=== PATIENT | female | born 1960 | race Caucasian/White ===

== ENCOUNTER 2020-12-15 09:24 | Day surgery (SDC) | payer OTHER ==
[2020-11-25 13:38] VITALS: BMI 25.9
--- NOTE | 2020-12-15 08:39 | P.GSHP ---
History of Present Illness H&P Date: 12/15/20 CHIEF COMPLAINT: Colon screen HISTORY OF PRESENT ILLNESS: The patient is a 60-year-old female who presents for colon screen. Lower endoscopy was offered for further evaluation and management. PAST MEDICAL HISTORY: Please see list. PAST SURGICAL HISTORY: Please see list. MEDICATIONS: Please see list. ALLERGIES: Please see list. SOCIAL HISTORY: No illicit drug use FAMILY HISTORY: No reports of Crohn disease or ulcerative colitis. REVIEW OF ORGAN SYSTEMS: CONSTITUTIONAL: No reports of fevers or chills. PHYSICAL EXAM: VITAL SIGNS: Stable GENERAL: Well-developed pleasant in no acute distress. HEENT: No scleral icterus. Extraocular movements grossly intact. Moist buccal mucosa. NECK: Supple without lymphadenopathy. CHEST: Unlabored respirations. Equal bilateral excursions. CARDIOVASCULAR: Regular rate and rhythm. Distal 2+ pulses. ABDOMEN: Soft, nontender, nondistended. MUSCULOSKELETAL: No clubbing, cyanosis, or edema. ASSESSMENT: 1. Colon screen. PLAN: 1. Recommend proceeding with a lower endoscopy Past Medical History Past Medical History: Hyperlipidemia Additional Past Medical History / Comment(s): received J&J covid vaccine History of Any Multi-Drug Resistant Organisms: None Reported Past Surgical History: Back Surgery, Hysterectomy, Tonsillectomy Additional Past Surgical History / Comment(s): back surgery x3,has spinal cord stimulator-battery rt hip lead to mid back,partial hyst Past Anesthesia/Blood Transfusion Reactions: No Reported Reaction Smoking Status: Former smoker - Past Family History Mother Family Medical History: Cancer Additional Family Medical History / Comment(s): brain CA Father Family Medical History: Cancer Additional Family Medical History / Comment(s): lung CA Medications and Allergies Home Medications Medication Instructions Recorded Confirmed Type Aspirin 81 mg PO DAILY 11/25/20 12/13/20 History Calcium Carbonate [Calcium] 600 mg PO DAILY 11/25/20 12/13/20 History Gabapentin 600 mg PO TID 11/25/20 12/13/20 History [place]-3 Fatty Acids/Fish Oil [Fish 1 each PO DAILY 11/25/20 12/13/20 History Oil 1,000 mg Softgel] Pravastatin Sodium [Pravachol] 20 mg PO DAILY 11/25/20 12/13/20 History Vitamin B Complex 1 each PO DAILY 12/13/20 12/13/20 History Allergies Allergy/AdvReac Type Severity Reaction Status Date / Time No Known Allergies Allergy Verified 12/13/20 14:38
[~2020-12-15 09:24] MED LIST: LACTATED RINGERS 1,000 ML IV SCH
[2020-12-15] MEDS ORDERED: LIDOCAINE 1% (10MG/ML) FOR IV START INTRADERMA ONE (10:02)
[2020-12-15 10:03] VITALS: TEMP 97
[2020-12-15] MEDS ORDERED: PROPOFOL 10 MG/ML 20 ML VIAL IV ONE (10:32)
--- NOTE | 2020-12-15 11:01 | P.PCN ---
Date of Procedure: 12/15/20 Description of Procedure: PREOPERATIVE DIAGNOSIS: Colonoscopy screening. Personal history colon polyps POSTOPERATIVE DIAGNOSIS: Colonoscopy screening. Diverticulosis, scattered. OPERATION: Colonoscopy to the cecum, ileocecal valve and appendiceal orifice. SURGEON: Ruth Villar MD. ANESTHESIA: MAC. INDICATIONS: The patient is a 60-year-old female who presents for colonoscopy screening. Last colonoscopy over 3 years ago Benefits and risks were described and informed consent was obtained. DESCRIPTION OF PROCEDURE: The patient had undergone Sutab prep. The patient had been brought into the operating room and laid in the left lateral decubitus position. After adequate intravenous sedation, the rectum was examined with 2% lidocaine jelly. No external hemorrhoids were encountered. The rectal tone was within normal limits. No lesions were palpated in the rectal vault. An Olympus colonoscope was advanced until the cecum, ileocecal valve and appendiceal orifice were clearly viewed. The prep was excellent. Scattered diverticulosis was encountered. No colonic polyps were found. Mild colitis was found at sigmoid diverticulosis. Retroflexion of the scope demonstrated grade 1 internal hemorrhoids without active bleeding or inflammation. The colon was desufflated. The patient had tolerated the procedure well. Withdrawal time was over 6 minutes. FINDINGS: Aronchick preparation quality scale 1 (1-5) Internal hemorrhoids, grade 1 No external prolapsed hemorrhoids. No arteriovenous malformations. No adenomatous polyps. Mild colitis was found at sigmoid diverticulosis. Scattered diverticulosis RECOMMENDATIONS: Lower endoscopy in 5 years, 2025 Plan - Discharge Summary Discharge Rx Participant: No New Discharge Prescriptions: Continue Pravastatin Sodium [Pravachol] 20 mg PO DAILY Aspirin 81 mg PO DAILY Vitamin B Complex 1 each PO DAILY Gabapentin 600 mg PO TID [place]-3 Fatty Acids/Fish Oil [Fish Oil 1,000 mg Softgel] 1 each PO DAILY Calcium Carbonate [Calcium] 600 mg PO DAILY Discharge Medication List Aspirin 81 mg PO DAILY 11/25/20 [History] Calcium Carbonate [Calcium] 600 mg PO DAILY 11/25/20 [History] Gabapentin 600 mg PO TID 11/25/20 [History] [place]-3 Fatty Acids/Fish Oil [Fish Oil 1,000 mg Softgel] 1 each PO DAILY 11/25/20 [History] Pravastatin Sodium [Pravachol] 20 mg PO DAILY 11/25/20 [History] Vitamin B Complex 1 each PO DAILY 12/13/20 [History] Follow up Appointment(s)/Referral(s): Ruth Villar MD [STAFF PHYSICIAN] - As Needed Patient Instructions/Handouts: *Surgery [facility] - (Anesthesia) Endoscopy Discharge Instructions, Colonoscopy (DC), Diverticulosis Diet (GEN), Diverticulosis (DC) Activity/Diet/Wound Care/Special Instructions: Colonoscopy in 5 years, 2025 Discharge Disposition: HOME SELF-CARE
[2020-12-15 11:16] VITALS: BP 131/79; PULSE 72; RESP 16
== END 2020-12-15 11:35 | disposition home or self-care (01) ==
LOC: ORWHC2ENDO 09:24
PROVIDERS: ATTEND Surgery Plastic and Reconstructive Surgery
DX: Z12.11 Encounter for screening for malignant neoplasm of colon (principal); K57.90 Diverticulosis of intestine, part unspecified, without perforation or abscess without bleeding; K52.9 Noninfective gastroenteritis and colitis, unspecified; K64.0 First degree hemorrhoids; Z86.010 Personal history of colon polyps; E78.5 Hyperlipidemia, unspecified; Z90.710 Acquired absence of both cervix and uterus; Z98.890 Other specified postprocedural states; Z90.89 Acquired absence of other organs; Z96.82 Presence of neurostimulator; Z87.891 Personal history of nicotine dependence; Z80.1 Family history of malignant neoplasm of trachea, bronchus and lung; Z80.8 Family history of malignant neoplasm of other organs or systems; Z79.82 Long term (current) use of aspirin; Z79.899 Other long term (current) drug therapy
CPT/HCPCS: J2704; G0105; 45378

== ENCOUNTER → 2022-01-10 | Outpatient (CLI) | payer OTHER ==
--- NOTE | 2022-01-10 09:45 | USB ---
Reason for Exam: Clinical finding. Last mammogram was performed 14 year(s) and 6 month(s) ago. Patient History: Menarche at age 12. First Full-Term at age 16. Hysterectomy at age 22. Postmenopausal. Estrogen, starting at age 44 for 1 year. Benign Excisional Biopsy on the right side. Benign Excisional Biopsy on the right side. Risk Values: Virgie 5 year model risk: 1.6%. NCI Lifetime model risk: 6.6%. Prior Study Comparison: 12/30/2004 Bilateral Screening Mammogram, [facility]. 01/18/2006 Bilateral Screening Mammogram, [facility]. 07/15/2007 Bilateral Diagnostic Mammogram, [facility]. Tissue Density: The breast tissue is heterogeneously dense. This may lower the sensitivity of mammography. Findings: Analyzed By CAD. Mammogram There is an irregular mass 12:00 position left breast which measures approximately 2.7 x 2.7 x 2.2 cm and contains internal pleomorphic calcifications. The mass resides approximately 5.8 cm from the nipple. There is a a left axillary lymph node which appears to be abnormal in its morphology. With regards to the right breast there is a asymmetric density at approximately 9:00 which appears less conspicuous upon the additional spot compression images. Ultrasound however is recommended bilaterally.. Findings: Irregular hypoechoic mass left breast at approximately 11:00 is noted which demonstrates increased peripheral vascularity. This mass is taller than it is wide and demonstrates posterior acoustic shadowing. This is felt to reflect malignancy until proven otherwise. Within the left axilla there is a lymph node with thickened cortex. Tissue diagnosis is recommended of this lymph node. With regards to right breast there is no evidence for solid or cystic mass. Overall Assessment: Highly suggestive of malignancy, BI-RAD 5 Assessment: MG 3D diag mammo w/cad DAMIR - Bilateral: Incomplete: need additional imaging evaluation, BI-RAD 0. Management: Ultrasound Core Biopsy of the left breast. A clinical breast exam by your physician is recommended on an annual basis and results should be correlated with mammographic findings. Results were given to the patient verbally at the time of exam. Electronically signed and approved by: Kevin Bashir M.D. Radiologis
== END | disposition home or self-care (01) ==
LOC: RADMAMWWP 07:51
PROVIDERS: ATTEND Family Medicine
DX: R92.1 Mammographic calcification found on diagnostic imaging of breast (principal)
CPT/HCPCS: 77062; 77066

== ENCOUNTER → 2022-01-16 | Day surgery (SDC) | payer OTHER ==
--- NOTE | 2022-01-20 11:17 | USB ---
Reason for Exam: Post Procedure Mammogram. Last screening mammogram was performed less than 1 month ago. Patient History: Menarche at age 12. First Full-Term at age 16. Hysterectomy at age 22. Postmenopausal. Estrogen, starting at age 44 for 1 year. Benign Excisional Biopsy on the right side. Benign Excisional Biopsy on the right side. Risk Values: Virgie 5 year model risk: 1.6%. NCI Lifetime model risk: 6.6%. Prior Study Comparison: 01/18/2006 Bilateral Screening Mammogram, [facility]. 07/15/2007 Bilateral Diagnostic Mammogram, [facility]. 01/10/2022 Right US breast limited BILAT, [facility]. 01/10/2022 Bilateral MG 3D diag mammo w/cad DAMIR, [facility]. Tissue Density: Left: The breast tissue is heterogeneously dense. This may lower the sensitivity of mammography. Pathology Description: Location: 11 o'clock, upper inner quadrant, middle. Marker Left Behind. Cores: 4 Gauge: 12 The procedure of ultrasound guided core biopsy was explained to the patient. Benefits, alternatives, and risks were discussed. An informed consent was then obtained. The patient was placed in supine positioning for imaging and for the procedure. The overlying skin was prepped and draped in usual sterile fashion. Lidocaine buffered was used as anesthetic into the skin and subcutaneous tissue up to area of concern in the left 11:00 breast and left axilla. Under ultrasound guidance, a 12-gauge vacuum assisted biopsy gun device was used to obtain 4 core samples. Following this, a biopsy clip was left in lesion. The left axillary lymph node was also localized and 2 core samples were obtained. The patient tolerated the procedure well without any immediate complication. The patient was kept in the radiology department for short stay after the procedure and then discharged home in stable condition. Impression: Successful, uncomplicated ultrasound guided core biopsy of area of concern in the left 11:00 breast and left axillary lymph node, full pathology results to follow. Pathology Results: Result: Malignant, Invasive ductal carcinoma. A. LEFT BREAST, 11:00 POSITION, CORE BIOPSY: Invasive high grade ductal carcinoma (Grade 3). See Surgical Pathology Cancer Case Summary and comment. B. LEFT AXILLARY LYMPH NODE, CORE BIOPSY: Lymphoid tissue, negative for metastatic carcinoma. Pancytokeratin (AE1/AE3) staining with appropriate controls on specimen B negative for features of metastatic carcinoma. Pathology Description: Location: axilla. Marker Left Behind. Cores: 2 The procedure of ultrasound guided core biopsy was explained to the patient. Benefits, alternatives, and risks were discussed. An informed consent was then obtained. The patient was placed in supine positioning for imaging and for the procedure. The overlying skin was prepped and draped in usual sterile fashion. Lidocaine buffered was used as anesthetic into the skin and subcutaneous tissue up to area of concern in the left 11:00 breast and left axilla. Under ultrasound guidance, a 12-gauge vacuum assisted biopsy gun device was used to obtain 4 core samples. Following this, a biopsy clip was left in lesion. The left axillary lymph node was also localized and 2 core samples were obtained. The patient tolerated the procedure well without any immediate complication. The patient was kept in the radiology department for short stay after the procedure and then discharged home in stable condition. Impression: Successful, uncomplicated ultrasound guided core biopsy of area of concern in the left 11:00 breast and left axillary lymph node, full pathology results to follow. Pathology Results: Result: Malignant, Invasive ductal carcinoma. A. LEFT BREAST, 11:00 POSITION, CORE BIOPSY: Invasive high grade ductal carcinoma (Grade 3). See Surgical Pathology Cancer Case Summary and comment. B. LEFT AXILLARY LYMPH NODE, CORE BIOPSY: Lymphoid tissue, negative for metastatic carcinoma. Pancytokeratin (AE1/AE3) staining with appropriate controls on specimen B negative for features of metastatic carcinoma. Overall Assessment: Malignant Assessment: MG diagnostic mammo LT wo CAD. - Left: Known biopsy proven malignancy, BI-RAD 6. Management: Surgical Consultation of the left breast. Electronically signed and approved by: Kevin Bashir M.D. Radiologis
--- NOTE | 2022-01-20 11:17 | USB ---
Reason for Exam: Post Procedure Mammogram. Last screening mammogram was performed less than 1 month ago. Patient History: Menarche at age 12. First Full-Term at age 16. Hysterectomy at age 22. Postmenopausal. Estrogen, starting at age 44 for 1 year. Benign Excisional Biopsy on the right side. Benign Excisional Biopsy on the right side. Risk Values: Virgie 5 year model risk: 1.6%. NCI Lifetime model risk: 6.6%. Prior Study Comparison: 01/18/2006 Bilateral Screening Mammogram, [facility]. 07/15/2007 Bilateral Diagnostic Mammogram, [facility]. 01/10/2022 Right US breast limited BILAT, [facility]. 01/10/2022 Bilateral MG 3D diag mammo w/cad DAMIR, [facility]. Tissue Density: Left: The breast tissue is heterogeneously dense. This may lower the sensitivity of mammography. Pathology Description: Location: 11 o'clock, upper inner quadrant, middle. Marker Left Behind. Cores: 4 Gauge: 12 The procedure of ultrasound guided core biopsy was explained to the patient. Benefits, alternatives, and risks were discussed. An informed consent was then obtained. The patient was placed in supine positioning for imaging and for the procedure. The overlying skin was prepped and draped in usual sterile fashion. Lidocaine buffered was used as anesthetic into the skin and subcutaneous tissue up to area of concern in the left 11:00 breast and left axilla. Under ultrasound guidance, a 12-gauge vacuum assisted biopsy gun device was used to obtain 4 core samples. Following this, a biopsy clip was left in lesion. The left axillary lymph node was also localized and 2 core samples were obtained. The patient tolerated the procedure well without any immediate complication. The patient was kept in the radiology department for short stay after the procedure and then discharged home in stable condition. Impression: Successful, uncomplicated ultrasound guided core biopsy of area of concern in the left 11:00 breast and left axillary lymph node, full pathology results to follow. Pathology Results: Result: Malignant, Invasive ductal carcinoma. A. LEFT BREAST, 11:00 POSITION, CORE BIOPSY: Invasive high grade ductal carcinoma (Grade 3). See Surgical Pathology Cancer Case Summary and comment. B. LEFT AXILLARY LYMPH NODE, CORE BIOPSY: Lymphoid tissue, negative for metastatic carcinoma. Pancytokeratin (AE1/AE3) staining with appropriate controls on specimen B negative for features of metastatic carcinoma. Pathology Description: Location: axilla. Marker Left Behind. Cores: 2 The procedure of ultrasound guided core biopsy was explained to the patient. Benefits, alternatives, and risks were discussed. An informed consent was then obtained. The patient was placed in supine positioning for imaging and for the procedure. The overlying skin was prepped and draped in usual sterile fashion. Lidocaine buffered was used as anesthetic into the skin and subcutaneous tissue up to area of concern in the left 11:00 breast and left axilla. Under ultrasound guidance, a 12-gauge vacuum assisted biopsy gun device was used to obtain 4 core samples. Following this, a biopsy clip was left in lesion. The left axillary lymph node was also localized and 2 core samples were obtained. The patient tolerated the procedure well without any immediate complication. The patient was kept in the radiology department for short stay after the procedure and then discharged home in stable condition. Impression: Successful, uncomplicated ultrasound guided core biopsy of area of concern in the left 11:00 breast and left axillary lymph node, full pathology results to follow. Pathology Results: Result: Malignant, Invasive ductal carcinoma. A. LEFT BREAST, 11:00 POSITION, CORE BIOPSY: Invasive high grade ductal carcinoma (Grade 3). See Surgical Pathology Cancer Case Summary and comment. B. LEFT AXILLARY LYMPH NODE, CORE BIOPSY: Lymphoid tissue, negative for metastatic carcinoma. Pancytokeratin (AE1/AE3) staining with appropriate controls on specimen B negative for features of metastatic carcinoma. Overall Assessment: Malignant Assessment: MG diagnostic mammo LT wo CAD. - Left: Known biopsy proven malignancy, BI-RAD 6. Management: Surgical Consultation of the left breast. Electronically signed and approved by: Kevin Bashir M.D. Radiologis
== END ==
LOC: RADUSWWP 12:17
PROVIDERS: ATTEND Surgery
DX: C50.912 Malignant neoplasm of unspecified site of left female breast (principal)
CPT/HCPCS: 88305; 88342; 88341; 77065; 38505; 19083; A4648; 19084

== ENCOUNTER → 2022-01-20 | Outpatient (CLI) | payer OTHER ==
[2022-01-20 11:40] VITALS: BP 135/81; PULSE 95; RESP 18; TEMP 98.3
--- NOTE | 2022-01-20 12:36 | P.GSHP ---
History of Present Illness H&P Date: 01/20/22 Chief Complaint: Invasive ductal carcinoma left breast Eunice is 61-year-old white female seen in consultation for Dr. Marcum regarding an invasive ductal carcinoma of the left breast. She underwent a bilateral screening mammogram on as well as an ultrasound of the left breast at that time. Nothing of concern was noted in the right breast. In the left breast a 2.7 cm lesion was noted near the 12 o'clock position. Additionally enlarged axillary lymph node was identified and biopsied this was recommended as well. She underwent core biopsy of both of these areas on . Pathology revealed an invasive ductal carcinoma of the left breast, lymph node results were benign. The lesion is [id number]. The patient has been able to feel the spot for about two weeks. She gets mammograms regularly, however with COVID she was 2 years out. She is not complaining of any pain. He has had a right breast core lumpectomy approximately 20 years ago and told she had a precancerous lesion. She did not have any radiation therapy or chemotherapy. She is not complaining of any recent trauma or infection in the breast. She has never had a left breast biopsy. Caffeine: 1 pot/day nicotine: vapes since 2012, used to smoke < 1PPD started at 11 hormones: BCP: 3 years partial hysterectomy at 21; estrogen 10 years; Family History: mother: brain cancer father: lung maternal grandfather: lung aunt maternal: kidney cancer maternal uncle: throat cancer Hormonal History: menarche: 12 , breast fed: no, age at first : 17 menopause: hysterectomy at 21 for bleeding; left ovaries Surgical History: 3 spinal surgeries Neural modulator Hysterectomy Medical History: Degenerative disc disease and spine High cholesterol Borderline diabetic Social History: Nicotine/dates since 2012, used to smoke less than 1 pack per day started at 11 Alcohol: none drugs: none - Constitutional Constitutional: Reports sweats - EENT Comment: glaucoma Ears: bilateral: tinnitus, deny: decreased hearing Ears, nose, mouth and throat: Denies headache, Denies sore throat - Breasts Breasts: bilateral: as per HPI - Cardiovascular Cardiovascular: Reports shortness of breath, Denies chest pain - Respiratory Respiratory: Denies cough, Denies 7 - Gastrointestinal Gastrointestinal: Denies abdominal pain, Denies diarrhea, Denies nausea, Denies vomiting - Genitourinary (Female) Genitourinary: Denies dysuria, Denies hematuria - Menstruation Menstruation: Reports post hysterectomy - Musculoskeletal Musculoskeletal: Reports as per HPI - Integumentary Integumentary: Denies pruritus, Denies rash - Neurological Neurological: Denies numbness, Denies weakness - Psychiatric Psychiatric: Denies anxiety, Denies depression - Endocrine Endocrine: Denies fatigue, Denies weight change - Hematologic/Lymphatic Comment: baby aspirin daily - Allergic/Immunologic Allergic/Immunologic: Reports as per HPI Past Medical History Past Medical History: Hyperlipidemia Additional Past Medical History / Comment(s): received J&J covid vaccine. Gabapentin for "hot flashes" History of Any Multi-Drug Resistant Organisms: None Reported Past Surgical History: Back Surgery, Hysterectomy, Tonsillectomy Additional Past Surgical History / Comment(s): back surgery x3,has spinal cord stimulator-battery rt hip lead to mid back,partial hyst Past Anesthesia/Blood Transfusion Reactions: No Reported Reaction Past Psychological History: No Psychological Hx Reported Smoking Status: Former smoker Past Alcohol Use History: None Reported Additional Past Alcohol Use History / Comment(s): quit smoking years ago, smoked approx 30 yrs <1ppd Past Drug Use History: None Reported - Past Family History Mother Family Medical History: Cancer Additional Family Medical History / Comment(s): brain CA Father Family Medical History: Cancer Additional Family Medical History / Comment(s): lung CA Medications and Allergies Home Medications Medication Instructions Recorded Confirmed Type Aspirin 81 mg PO DAILY 11/25/20 01/20/22 History Calcium Carbonate [Calcium] 600 mg PO DAILY 11/25/20 01/20/22 History Gabapentin 600 mg PO BID 11/25/20 01/20/22 History [place]-3 Fatty Acids/Fish Oil [Fish 1 each PO DAILY 11/25/20 01/20/22 History Oil 1,000 mg Softgel] Pravastatin Sodium [Pravachol] 20 mg PO DAILY 11/25/20 01/20/22 History Vitamin B Complex 1 each PO DAILY 12/13/20 01/20/22 History Allergies Allergy/AdvReac Type Severity Reaction Status Date / Time neosporin eye drops AdvReac Swelling Uncoded 01/20/22 11:36 Surgical - Exam Vital Signs Temp Pulse Resp BP Pulse Ox 98.3 F 95 18 135/81 96 01/20/22 11:37 01/20/22 11:37 01/20/22 11:37 01/20/22 11:37 01/20/22 11:37 BMI: 26.3 - General no distress - Eyes normal ocular movement - Neck trachea midline - Respiratory normal respiratory effort, clear to auscultation - Cardiovascular Rhythm: regular Heart Sounds: normal: S1, S2 - Abdomen Abdomen: soft, non tender, no guarding, no rigid, no rebound - Integumentary normal turgor - Neurologic no disoriented, no combative - Musculoskeletal normal gait, normal posture - Psychiatric oriented to time, oriented to person, oriented to place, speech is normal, memory intact Breast Eam: BRA: 38C inspection: Left breast slightly larger than right breast, ecchymosis at biopsy sites, the lateral grade 2 ptosis Palpation: Right breast: Multiple positional exam fibrocystic changes no dominant masses or nodules of concern Right axilla: No adenopathy of concern Left breast: Mass at 12 o'clock position approximately 3 cm in size, ecchymosis at biopsy site no evidence of hematoma or infection Left axilla: No adenopathy of concern Results Mammogram reviewed personally, pathology results reviewed Assessment and Plan Assessment: Impression: Left breast invasive ductal carcinoma T2 N0 M0 ER positive MA negative HER-2 negative G3 Fibrocystic breast changes History of degenerative joint disease with back pain and neuromodulator in place Plan: Presentation of case at tumor board Discussion with patient and her of stage of tumor and treatment options Medical clearance from Dr. Marcum CC: Dr. Marcum
== END ==
LOC: WWCWWP 11:19
PROVIDERS: ATTEND Surgery
DX: C50.912 Malignant neoplasm of unspecified site of left female breast (principal); Z17.0 Estrogen receptor positive status [ER+]; N60.11 Diffuse cystic mastopathy of right breast; M19.90 Unspecified osteoarthritis, unspecified site; M54.9 Dorsalgia, unspecified; Z96.82 Presence of neurostimulator; F17.210 Nicotine dependence, cigarettes, uncomplicated; E78.00 Pure hypercholesterolemia, unspecified; E78.5 Hyperlipidemia, unspecified; Z88.1 Allergy status to other antibiotic agents

== ENCOUNTER → 2022-02-13 | Outpatient (CLI) | payer OTHER ==
--- NOTE | 2022-02-13 20:05 | BD ---
EXAMINATION TYPE: Axial Bone Density DATE OF EXAM: 02/13/2022 COMPARISON: NONE CLINICAL HISTORY: 61 year old Female. ICD-10 CODE: C50.912 BREAST CANCER Height: 65 Weight: 158.0 FRAX RISK QUESTIONS: Alcohol (3 or more units per day): no Family History (Parent hip fracture): no Glucocorticoids (More than 3mos): no (Ex: prednisone, prednisolone, methylprednisolone, dexamethasone, and hydrocortisone). History of Fracture in Adulthood: no Secondary Osteoporosis: 1. Type 1 Diabetes: no 2. Hyperthyroidism: no 3. Menopause before 45: yes 4. Malnutrition: no 5. Chronic liver disease: no Rheumatoid Arthritis: no Current Tobacco Use: yes RISK FACTORS HISTORY OF: Surgery to Spine/Hip(right/left)/Wrist (right/left): fusion to lower spine When: 1979 Family History of Osteoporosis: no Active: no Diet low in dairy products/other sources of calcium: no Postmenopausal woman: yes Lost more than 2 inches in height since high school: no MEDICATIONS: Additional History: diagnosed breast cancer EXAM MEASUREMENTS: Bone mineral densitometry was performed using the [employer] System. Bone mineral density about the R hip (g/cm2): 0.963 Bone mineral density about the L hip (g/cm2): 0.899 T Score values are as follows: -----R Neck: -0.5 -----L Neck: -1.0 -----R Total: -0.8 -----L Total: -0.8 Bone mineral density : baseline Bone mineral density about the L Wrist (g/cm2): 0.575 T Score values are as follows: -----Dist. R+U: -1.0 -----Prox. R+U: -1.6 -----Radius total: -1.6 Bone mineral density : baseline FRAX%s: The graph provided illustrates a 7.8% chance for a major osteoporotic fx and a 0.5% chance fo r the hips probability for fx in 10 years time. IMPRESSION: Osteopenia (T Score between -2.5 and -1). There is slightly increased risk of fracture and the patient may be considered for treatment. Re-Screen 2-5 years. NOTE: T-SCORE=SD OF THE YOUNG ADULT MEAN.
== END | disposition home or self-care (01) ==
LOC: RADBDWWP 11:07
PROVIDERS: ATTEND Internal Medicine
DX: C50.912 Malignant neoplasm of unspecified site of left female breast (principal); M85.89 Other specified disorders of bone density and structure, multiple sites; Z78.0 Asymptomatic menopausal state
CPT/HCPCS: 77080

== ENCOUNTER 2022-03-24 20:11 | Emergency (ER) | payer OTHER ==
[2022-03-24 20:57] VITALS: RESP 20
[2022-03-24] MEDS ORDERED: MORPHINE SULFATE 4 MG/ML SYRINGE IV STA (22:06)
--- NOTE | 2022-03-24 22:15 | ED ---
General Adult HPI - General Chief complaint: Recheck/Abnormal Lab/Rx Stated complaint: Nausea-Sent by PCP Time Seen by Provider: 03/24/22 21:56 Source: patient Mode of arrival: wheelchair Limitations: no limitations - History of Present Illness Initial comments: This patient is a 61-year-old woman who presents with complaint that she is having diffuse body aches. She states it feels like the joints and bones are hurting in her shoulders, hips, arms and legs. He was concerned because she did have chemotherapy that started last week as treatment for her breast cancer. Patient has not noted any signs or symptoms of infection. She is not having fe linda or chills. No congestion or cough or sore throat. No chest pain or dyspnea. No change in urination or bowel movements. No abdominal pain. Onset/Timin -: days(s) Location: left, right, upper extremity, lower extremity Radiation: non-radiation Quality: aching Consistency: constant Improves with: none Worsens with: movement Associated Symptoms: denies other symptoms Treatments Prior to Arrival: other (Tylenol) - Related Data Home Medications Medication Instructions Recorded Confirmed Aspirin 81 mg PO DAILY 11/25/20 01/20/22 Calcium Carbonate [Calcium] 600 mg PO DAILY 11/25/20 01/20/22 Gabapentin 600 mg PO BID 11/25/20 01/20/22 [place]-3 Fatty Acids/Fish Oil [Fish 1 each PO DAILY 11/25/20 01/20/22 Oil 1,000 mg Softgel] Pravastatin Sodium [Pravachol] 20 mg PO DAILY 11/25/20 01/20/22 Vitamin B Complex 1 each PO DAILY 12/13/20 01/20/22 Previous Rx's Medication Instructions Recorded Fluconazole [Diflucan] 150 mg PO ONCE #1 tab 03/25/22 Allergies Allergy/AdvReac Type Severity Reaction Status Date / Time acetaminophen [From [place]] AdvReac Nausea & Verified 03/24/22 20:57 Vomiting hydrocodone [From [place]] AdvReac Nausea & Verified 03/24/22 20:57 Vomiting neosporin eye drops AdvReac Swelling Uncoded 03/24/22 20:57 Review of Systems ROS Statement: Those systems with pertinent positive or pertinent negative responses have been documented in the HPI. ROS Other: All systems not noted in ROS Statement are negative. Constitutional: Denies: fever, chills, weakness Respiratory: Denies: cough, dyspnea Cardiovascular: Denies: chest pain, palpitations, edema Gastrointestinal: Denies: abdominal pain, vomiting, diarrhea, constipation Genitourinary: Denies: dysuria, frequency, hematuria Musculoskeletal: Reports: as per HPI, arthralgia. Denies: myalgia Skin: Denies: rash Neurological: Denies: headache, weakness, numbness Past Medical History Past Medical History: Cancer, Hyperlipidemia Additional Past Medical History / Comment(s): received J&J covid vaccine. Gabapentin for "hot flashes" History of Any Multi-Drug Resistant Organisms: None Reported Past Surgical History: Back Surgery, Hysterectomy, Tonsillectomy Additional Past Surgical History / Comment(s): back surgery x3,has spinal cord stimulator-battery rt hip lead to mid back,partial hyst Past Anesthesia/Blood Transfusion Reactions: No Reported Reaction Past Psychological History: No Psychological Hx Reported Smoking Status: Former smoker Past Alcohol Use History: None Reported Past Drug Use History: None Reported - Past Family History Mother Family Medical History: Cancer Additional Family Medical History / Comment(s): brain CA Father Family Medical History: Cancer Additional Family Medical History / Comment(s): lung CA General Exam Limitations: no limitations General appearance: alert, in no apparent distress Head exam: Present: atraumatic, normocephalic Eye exam: Present: normal appearance. Absent: scleral icterus, conjunctival i njection ENT exam: Present: normal oropharynx Neck exam: Present: normal inspection, full ROM. Absent: meningismus Respiratory exam: Present: normal lung sounds bilaterally. Absent: respiratory distress, wheezes, rales, rhonchi, stridor Cardiovascular Exam: Present: regular rate, normal rhythm, normal heart sounds. Absent: systolic murmur, diastolic murmur, rubs, gallop GI/Abdominal exam: Present: soft. Absent: distended, tenderness, guarding, rebound, rigid, mass Extremities exam: Present: normal inspection, normal capillary refill. Absent: pedal edema, calf tenderness Back exam: Present: normal inspection. Absent: CVA tenderness (R), CVA tenderness (L) Neurological exam: Present: alert Skin exam: Present: warm, dry, intact, normal color. Absent: rash Course Vital Signs 03/24/22 03/25/22 20:55 01:33 Temperature 99.3 F 97.6 F Pulse Rate 103 H 89 Respiratory 20 20 Rate Blood Pressure 131/80 139/86 O2 Sat by Pulse 97 97 Oximetry EKG Findings - EKG Results: EKG: interpreted by JUAN C, sinus rhythm (Rate 81 bpm), normal axis, normal QRS, normal ST/T, no acute changes Medical Decision Making - Medical Decision Making Patient is 61-year-old woman here with bone and joint aches, after starting chemotherapy for breast cancer. The patient did have mild elevation of lactic acid. She is given IV hydration. And was given 1 dose of IV antibiotic while the cultures are pending. Patient was feeling better following IV fluids. She did decline to have analgesics. I placed a page out to oncology, patient was feeling better and did want to go home. Following her discharge, case was discussed with Dr.Al Bejarano return call and he will recheck to her over the weekend - Lab Data Result diagrams: 03/24/22 22:05 03/24/22 22:05 Lab Results 03/24/22 03/24/22 03/24/22 Range/Units 22:05 22:05 22:05 WBC 4.3 (3.8-10.6) k/uL RBC 4.87 (3.80-5.40) m/uL Hgb 14.0 (11.4-16.0) gm/dL Hct 43.5 (34.0-46.0) % MCV 89.4 (80.0-100.0) fL MCH 28.9 (25.0-35.0) pg MCHC 32.3 (31.0-37.0) g/dL RDW 12.0 (11.5-15.5) % Plt Count 116 L (150-450) k/uL MPV 8.7 Neutrophils % (Manual) 3 % Band Neuts % (Manual) 11 % Lymphocytes % (Manual) 65 % Monocytes % (Manual) 13 % Eosinophils % (Manual) 3 % Metamyelocytes % 5 % Myelocytes % 2 % Neutrophils # (Manual) 0.60 L (1.3-7.7) k/uL Lymphocytes # (Manual) 2.80 (1.0-4.8) k/uL Monocytes # (Manual) 0.56 (0-1.0) k/uL Eosinophils # (Manual) 0.13 (0-0.7) k/uL Metamyelocytes # (Man) 0.22 H (0) k/uL Myelocytes # (Manual) 0.09 H (0) k/uL Nucleated RBCs 0 (0-0) /100 WBC Manual Slide Review Performed Large Platelets Present Sodium 135 L (137-145) mmol/L Potassium 3.8 (3.5-5.1) mmol/L Chloride 99 (98-107) mmol/L Carbon Dioxide 23 (22-30) mmol/L Anion Gap 13 mmol/L BUN 13 (7-17) mg/dL Creatinine 0.59 (0.52-1.04) mg/dL Est GFR (CKD-EPI)AfAm >90 (>60 ml/min/1.73 sqM) Est GFR (CKD-EPI)NonAf >90 (>60 ml/min/1.73 sqM) Glucose 170 H (74-99) mg/dL Lactic Ac Sepsis Rflx Plasma Lactic Acid [place] 3.0 H* (0.7-2.0) mmol/L Calcium 8.9 (8.4-10.2) mg/dL Total Bilirubin 0.3 (0.2-1.3) mg/dL AST 27 (14-36) U/L ALT 25 (4-34) U/L Alkaline Phosphatase 124 (38-126) U/L Troponin I (0.000-0.034) ng/mL Total Protein 6.2 L (6.3-8.2) g/dL Albumin 3.8 (3.5-5.0) g/dL Urine Color Urine Appearance (Clear) Urine pH (5.0-8.0) Ur Specific [place] (1.001-1.035) Urine Protein (Negative) Urine Glucose (UA) (Negative) Urine Ketones (Negative) Urine Blood (Negative) Urine Nitrite (Negative) Urine Bilirubin (Negative) Urine Urobilinogen (<2.0) mg/dL Ur Leukocyte Esterase (Negative) Coronavirus (PCR) (Not Detectd) Influenza Type A RNA (Not Detectd) Influenza Type B (PCR) (Not Detectd) 03/24/22 03/24/22 03/24/22 Range/Units 22:05 22:33 22:33 WBC (3.8-10.6) k/uL RBC (3.80-5.40) m/uL Hgb (11.4-16.0) gm/dL Hct (34.0-46.0) % MCV (80.0-100.0) fL MCH (25.0-35.0) pg MCHC (31.0-37.0) g/dL RDW (11.5-15.5) % Plt Count (150-450) k/uL MPV Neutrophils % (Manual) % Band Neuts % (Manual) % Lymphocytes % (Manual) % Monocytes % (Manual) % Eosinophils % (Manual) % Metamyelocytes % % Myelocytes % % Neutrophils # (Manual) (1.3-7.7) k/uL Lymphocytes # (Manual) (1.0-4.8) k/uL Monocytes # (Manual) (0-1.0) k/uL Eosinophils # (Manual) (0-0.7) k/uL Metamyelocytes # (Man) (0) k/uL Myelocytes # (Manual) (0) k/uL Nucleated RBCs (0-0) /100 WBC Manual Slide Review Large Platelets Sodium (137-145) mmol/L Potassium (3.5-5.1) mmol/L Chloride (98-107) mmol/L Carbon Dioxide (22-30) mmol/L Anion Gap mmol/L BUN (7-17) mg/dL Creatinine (0.52-1.04) mg/dL Est GFR (CKD-EPI)AfAm (>60 ml/min/1.73 sqM) Est GFR (CKD-EPI)NonAf (>60 ml/min/1.73 sqM) Glucose (74-99) mg/dL Lactic Ac Sepsis Rflx Plasma Lactic Acid [place] (0.7-2.0) mmol/L Calcium (8.4-10.2) mg/dL Total Bilirubin (0.2-1.3) mg/dL AST (14-36) U/L ALT (4-34) U/L Alkaline Phosphatase (38-126) U/L Troponin I <0.012 (0.000-0.034) ng/mL Total Protein (6.3-8.2) g/dL Albumin (3.5-5.0) g/dL Urine Color Urine Appearance (Clear) Urine pH (5.0-8.0) Ur Specific [place] (1.001-1.035) Urine Protein (Negative) Urine Glucose (UA) (Negative) Urine Ketones (Negative) Urine Blood (Negative) Urine Nitrite (Negative) Urine Bilirubin (Negative) Urine Urobilinogen (<2.0) mg/dL Ur Leukocyte Esterase (Negative) Coronavirus (PCR) Not Detected (Not Detectd) Influenza Type A RNA Not Detected (Not Detectd) Influenza Type B (PCR) Not Detected (Not Detectd) 03/24/22 03/24/22 Range/Units 23:20 23:56 WBC (3.8-10.6) k/uL RBC (3.80-5.40) m/uL Hgb (11.4-16.0) gm/dL Hct (34.0-46.0) % MCV (80.0-100.0) fL MCH (25.0-35.0) pg MCHC (31.0-37.0) g/dL RDW (11.5-15.5) % Plt Count (150-450) k/uL MPV Neutrophils % (Manual) % Band Neuts % (Manual) % Lymphocytes % (Manual) % Monocytes % (Manual) % Eosinophils % (Manual) % Metamyelocytes % % Myelocytes % % Neutrophils # (Manual) (1.3-7.7) k/uL Lymphocytes # (Manual) (1.0-4.8) k/uL Monocytes # (Manual) (0-1.0) k/uL Eosinophils # (Manual) (0-0.7) k/uL Metamyelocytes # (Man) (0) k/uL Myelocytes # (Manual) (0) k/uL Nucleated RBCs (0-0) /100 WBC Manual Slide Review Large Platelets Sodium (137-145) mmol/L Potassium (3.5-5.1) mmol/L Chloride (98-107) mmol/L Carbon Dioxide (22-30) mmol/L Anion Gap mmol/L BUN (7-17) mg/dL Creatinine (0.52-1.04) mg/dL Est GFR (CKD-EPI)AfAm (>60 ml/min/1.73 sqM) Est GFR (CKD-EPI)NonAf (>60 ml/min/1.73 sqM) Glucose (74-99) mg/dL Lactic Ac Sepsis Rflx Y Plasma Lactic Acid [place] (0.7-2.0) mmol/L Calcium (8.4-10.2) mg/dL Total Bilirubin (0.2-1.3) mg/dL AST (14-36) U/L ALT (4-34) U/L Alkaline Phosphatase (38-126) U/L Troponin I (0.000-0.034) ng/mL Total Protein (6.3-8.2) g/dL Albumin (3.5-5.0) g/dL Urine Color Light Yellow Urine Appearance Clear (Clear) Urine pH 5.5 (5.0-8.0) Ur Specific [place] 1.006 (1.001-1.035) Urine Protein Negative (Negative) Urine Glucose (UA) Negative (Negative) Urine Ketones Negative (Negative) Urine Blood Negative (Negative) Urine Nitrite Negative (Negative) Urine Bilirubin Negative (Negative) Urine Urobilinogen <2.0 (<2.0) mg/dL Ur Leukocyte Esterase Negative (Negative) Coronavirus (PCR) (Not Detectd) Influenza Type A RNA (Not Detectd) Influenza Type B (PCR) (Not Detectd) Disposition Clinical Impression: Lactic acidosis Disposition: HOME SELF-CARE Instructions (If sedation given, give patient instructions): Dehydration (ED) Prescriptions: Fluconazole [Diflucan] 150 mg PO ONCE #1 tab Is patient prescribed a controlled substance at d/c from ED?: No Referrals: Drake Marcum MD [Primary Care Provider] - 1-2 days
[2022-03-24 22:59] LABS: HCT 43.5 % (34.0-46.0); MCH 28.9 pg (25.0-35.0); MCHC 32.3 g/dL (31.0-37.0); MCV 89.4 fL (80.0-100.0); Mean Platelet Volume 8.7; Platelet Count 116 k/uL (150-450); RBC 4.87 m/uL (3.80-5.40); WBC 4.3 k/uL (3.8-10.6)
[2022-03-24 23:13] LABS: ALT 25 U/L (4-34); AST 27 U/L (14-36); African American GFR (CKD) >90 (>60 ml/min/1.73 sqM); Albumin 3.8 g/dL (3.5-5.0); Alkaline Phosphatase 124 U/L (38-126); Anion Gap 13 mmol/L; Blood Urea Nitrogen 13 mg/dL (7-17); Calcium 8.9 mg/dL (8.4-10.2); Carbon Dioxide 23 mmol/L (22-30); Chloride 99 mmol/L (98-107); Glucose 170 mg/dL (74-99); Non-African American GFR(CKD) >90 (>60 ml/min/1.73 sqM); Potassium 3.8 mmol/L (3.5-5.1); Sodium 135 mmol/L (137-145); Total Bilirubin 0.3 mg/dL (0.2-1.3); Total Protein 6.2 g/dL (6.3-8.2)
[2022-03-24] MEDS ORDERED: SODIUM CHLORIDE 0.9% 1,000 ML IV ONE (23:22)
[2022-03-24] MEDS ORDERED: SODIUM CHLORIDE 0.9% 1,000 ML IV STA (23:22)
[2022-03-24] MEDS ORDERED: CEFEPIME 2 GM in SODIUM CHLORIDE 0.9% 100 ML IVPB STA (23:50)
[2022-03-24 23:52] LABS: Neutrophils % (M) 3 %
[2022-03-24 23:59] LABS: Band Neutrophils % 11 %; Eosinophils # (M) 0.13 k/uL (0-0.7); Metamyelocytes # (M) 0.22 k/uL (0); Metamyelocytes % 5 %; Monocytes # (M) 0.56 k/uL (0-1.0); Myelocytes # (M) 0.09 k/uL (0); Myelocytes % 2 %; Nucleated Red Blood Cells 0 /100 WBC (0-0); Total Cells Counted 200
[2022-03-25] LABS: Large Platelets Present
--- NOTE | 2022-03-25 00:23 | XR ---
EXAMINATION TYPE: XR chest 2V DATE OF EXAM: 03/25/2022 COMPARISON: NONE HISTORY: Fever and pain TECHNIQUE: 2 views FINDINGS: Heart and mediastinum are normal. Lungs are clear. Diaphragm is normal. Bony thorax is inta ct. There is right central venous catheter with tip in the superior vena cava. There is neural stimul ator in the mid thoracic spine. No pleural effusion. IMPRESSION: No active cardiopulmonary disease. Normal heart
[2022-03-25 00:51] LABS: Appearance,Urine Clear (Clear); Bilirubin,Urine Negative (Negative); Blood,Urine Negative (Negative); Color,Urine Light Yellow; Glucose,Urine (UA) Negative (Negative); Ketones,Urine Negative (Negative); Leukocyte Esterase,Urine Negative (Negative); Nitrite,Urine Negative (Negative); PH, Urine 5.5 (5.0-8.0); Protein,Urine Negative (Negative); Specific Gravity,Urine 1.006 (1.001-1.035); Urobilinogen,Urine <2.0 mg/dL (<2.0)
[2022-03-25 01:34] VITALS: BP 139/86; PULSE 89; TEMP 97.6
== END 2022-03-25 01:44 | disposition home or self-care (01) ==
LOC: EC 20:11
DX: E87.2 Acidosis (principal); E78.5 Hyperlipidemia, unspecified; Z87.891 Personal history of nicotine dependence; Z88.6 Allergy status to analgesic agent; Z88.5 Allergy status to narcotic agent; Z88.1 Allergy status to other antibiotic agents; Z79.82 Long term (current) use of aspirin; Z79.899 Other long term (current) drug therapy; Z20.822 Contact with and (suspected) exposure to COVID-19
CPT/HCPCS: 36415; 93005; 80053; 83605; 84484; 85025; 81003; 87040; 87502; 87635; 71046; 99284; 96365; 96375; 96361; J2270; J0692

== ENCOUNTER 2022-04-28 12:01 | Day surgery (SDC) | payer OTHER ==
[2022-04-28 12:27] VITALS: BP 120/68; PULSE 82; RESP 18; TEMP 97.8
[2022-04-28] MEDS ORDERED: IOPAMIDOL-370 50ML BTL INJ ONE (13:06)
--- NOTE | 2022-04-28 13:45 | IR ---
Port-A-Cath check HISTORY: Pain Patient's port was evaluated under real-time fluoroscopy. Gentle hand-injection of contrast material was performed under fluoroscopic observation. Catheter was subsequently flushed with sterile saline a nd heparin flush. There is no immediate complication. Patient remained in stable condition without co mplication or any symptoms. 156 intraoperative C-arm images, 0.2 minutes fluoroscopy time FINDINGS: Port is intact with the placement in the right pectoral region and coursing via jugular bartolome diaz, distal tip at the cavoatrial junction. There is no evident leak. Catheter shows normal positio n with normal flow from the catheter tip. No obstruction to flow. IMPRESSION: Normal Port-A-Cath check .
== END 2022-04-28 13:25 | disposition home or self-care (01) ==
LOC: CATHCVL 12:01
PROVIDERS: ATTEND Radiology Diagnostic Radiology
DX: Z45.2 Encounter for adjustment and management of vascular access device (principal)
CPT/HCPCS: 36598; J1642; Q9967

== ENCOUNTER → 2022-05-04 | Outpatient (CLI) | payer OTHER ==
[2022-05-04 13:16] VITALS: BP 124/75; PULSE 111; RESP 18; TEMP 98.3
--- NOTE | 2022-05-04 13:58 | P.PN ---
Subjective Progress Note Date: 05/04/22 Principal diagnosis: Invasive ductal carcinoma left breast/patient is receiving neoadjuvant chemotherapy Invasive ductal carcinoma left breast Eunice is 61-year-old white female seen in consultation for Dr. Marcum regarding an invasive ductal carcinoma of the left breast. She underwent a bilateral screening mammogram on as well as an ultrasound of the left breast at that time. Nothing of concern was noted in the right breast. In the left breast a 2.7 cm lesion was noted near the 12 o'clock position. Additionally enlarged axillary lymph node was identified and biopsied this was recommended as well. She underwent core biopsy of both of these areas on . Pathology revealed an invasive ductal carcinoma of the left breast, lymph node results were benign. The lesion is [id number]. The patient has been able to feel the spot for about two weeks. She gets mammograms regularly, however with COVID she was 2 years out. She is not complaining of any pain. He has had a right breast core lumpectomy approximately 20 years ago and told she had a precancerous lesion. She did not have any radiation therapy or chemotherapy. She is not complaining of any recent trauma or infection in the breast. She has never had a left breast biopsy. 05-04-22 The patient has been receiving neoadjuvant chemotherapy. She had genetic testing performed which revealed a very active uncertain significance. She had an Oncotype performed which revealed the number to be 69. She therefore has been undergoing chemotherapy. This had 4 courses of Adriamycin/Cytoxan she will finish that last week and will start Taxol next week. She will finish the Taxol in mid June. The tumor has decreased in size. The tumor was ER positive and MI HER-2 negative. Caffeine: 1 pot/day nicotine: vapes since 2012, used to smoke < 1PPD started at 11 hormones: BCP: 3 years partial hysterectomy at 21; estrogen 10 years; Family History: mother: brain cancer father: lung maternal grandfather: lung aunt maternal: kidney cancer maternal uncle: throat cancer Hormonal History: menarche: 12 , breast fed: no, age at first : 17 menopause: hysterectomy at 21 for bleeding; left ovaries Surgical History: 3 spinal surgeries Neural modulator in her back Hysterectomy Medical History: Degenerative disc disease and spine High cholesterol Borderline diabetic Left breast invasive ductal carcinoma Social History: Nicotine/dates since 2012, used to smoke less than 1 pack per day started at 11 Alcohol: none drugs: none - Constitutional Constitutional: Reports sweats - EENT Comment: glaucoma Ears: bilateral: tinnitus, deny: decreased hearing Ears, nose, mouth and throat: Denies headache, Denies sore throat - Breasts Breasts: bilateral: as per HPI - Cardiovascular Cardiovascular: Reports shortness of breath, Denies chest pain - Respiratory Respiratory: Denies cough - Gastrointestinal Gastrointestinal: Denies abdominal pain, Denies diarrhea, Denies nausea, Denies vomiting - Genitourinary (Female) Genitourinary: Denies dysuria, Denies hematuria - Menstruation Menstruation: Reports post hysterectomy - Musculoskeletal Musculoskeletal: Reports as per HPI - Integumentary Integumentary: Denies pruritus, Denies rash - Neurological Neurological: Denies numbness, Denies weakness - Psychiatric Psychiatric: Denies anxiety, Denies depression - Endocrine Endocrine: Denies fatigue, Denies weight change - Hematologic/Lymphatic Comment: baby aspirin daily - Allergic/Immunologic Allergic/Immunologic: Reports as per HPI Past Medical History Past Medical History: Hyperlipidemia Additional Past Medical History / Comment(s): received J&J covid vaccine. Gabapentin for "hot flashes" History of Any Multi-Drug Resistant Organisms: None Reported Past Surgical History: Back Surgery, Hysterectomy, Tonsillectomy Additional Past Surgical History / Comment(s): back surgery x3,has spinal cord stimulator-battery rt hip lead to mid back,partial hyst Past Anesthesia/Blood Transfusion Reactions: No Reported Reaction Past Psychological History: No Psychological Hx Reported Smoking Status: Former smoker Past Alcohol Use History: None Reported Additional Past Alcohol Use History / Comment(s): quit smoking years ago, smoked approx 30 yrs <1ppd Past Drug Use History: None Reported - Past Family History Mother Family Medical History: Cancer Additional Family Medical History / Comment(s): brain CA Father Family Medical History: Cancer Additional Family Medical History / Comment(s): lung CA Medications and Allergies Home Medications Medication Instructions Recorded Confirmed Type Aspirin 81 mg PO DAILY 11/25/20 01/20/22 History Calcium Carbonate [Calcium] 600 mg PO DAILY 11/25/20 01/20/22 History Gabapentin 600 mg PO BID 11/25/20 01/20/22 History [place]-3 Fatty Acids/Fish Oil [Fish 1 each PO DAILY 11/25/20 01/20/22 History Oil 1,000 mg Softgel] Pravastatin Sodium [Pravachol] 20 mg PO DAILY 11/25/20 01/20/22 History Vitamin B Complex 1 each PO DAILY 12/13/20 01/20/22 History Allergies Allergy/AdvReac Type Severity Reaction Status Date / Time neosporin eye drops AdvReac Swelling Uncoded 01/20/22 11:36 Objective - Vital Signs Vital signs: Vital Signs Temp 98.3 F 05/04/22 13:14 Pulse 111 H 05/04/22 13:14 Resp 18 05/04/22 13:14 BP 124/75 05/04/22 13:14 Pulse Ox 98 05/04/22 13:14 FiO2 Intake & Output 05/03/22 05/04/22 05/04/22 18:59 06:59 18:59 Weight 68.039 kg - Constitutional General appearance: Present: cooperative - EENT Eyes: Present: EOMI ENT: Present: hearing grossly normal - Neck Neck: Present: normal ROM - Respiratory Respiratory: bilateral: CTA - Cardiovascular Rhythm: regular Heart sounds: normal: S1, S2 - Integumentary Integumentary: Present: normal turgor - Musculoskeletal Musculoskeletal: Present: gait normal - Psychiatric Psychiatric: Present: A&O x's 3 - Additional findings Additional findings: Breast Exam: BRA: 38B Inspection: Port-A-Cath in place right chest wall, bilateral grade 2 ptosis Palpation: Right breast: Multiple positional exam fibrocystic changes no dominant masses or nodules of concern Right axilla: No adenopathy of concern Left breast: Multi-positional exam patient with nodularity at the 12 o'clock position, about 1 cm in size; decreased from pre chemotherapy left axilla: Adenopathy of concern Assessment and Plan Assessment: Impression: Response to neoadjuvant therapy. Patient is going to continue with her Taxol Plan: Left breast lumpectomy and sentinel node biopsy possible axillary node dissection as soon as she finishes chemotherapy and is cleared by medical oncology Clearance from medicine; Arya Ibanez CC: Zamzam Trujillo
== END | disposition home or self-care (01) ==
LOC: WWCWWP 12:53
PROVIDERS: ATTEND Surgery
DX: Z53.9 Procedure and treatment not carried out, unspecified reason (principal)

== ENCOUNTER → 2022-06-28 | Outpatient (CLI) | payer OTHER ==
--- NOTE | 2022-06-28 15:08 | USB ---
Patient History: Menarche at age 12. First Full-Term at age 16. Hysterectomy at age 22. Postmenopausal. Breast cancer, left, age 61. Breast cancer, left, age 61. Estrogen, starting at age 44 for 1 year. 01/16/2022, Malignant US biopsy breast VAD LT on the left side. 01/16/2022, Malignant US biopsy breast add'l VAD LT on the left side. Benign Excisional Biopsy on the right side. Benign Excisional Biopsy on the right side. Technique: Method: Whole Breast Handheld. Prior Study Comparison: 03/27/2019 Bilateral MG 3D screening mammo w/cad, [place]. 01/10/2022 Bilateral MG 3D diag mammo w/cad [facility], [facility]. 01/16/2022 Left MG diagnostic mammo LT wo CAD., [facility]. Findings: The whole breast of the left breast, the axilla of the left breast and the retroareolar of the left breast were scanned. A complete US of all four quadrants of the breast and retro-areolar region were reviewed. No solid or cystic masses are identified. Area of concern is felt to be decrease in size in today's exam and has a different morphology now measuring 1.4 x 0.7 cm when comparing to prior where it measured 3.2 x 2 point Kassie centimeters. Needle localization recommended by stereotactic method and not by ultrasound imaging to ensure proper localization given posttreatment changes and decrease in size from prior ultrasound on 01/10/2022 and biopsy on 01/16/2022. Overall Assessment: Known biopsy proven malignancy, BI-RAD 6 Management: Needle Localization of the left breast. Needle localization recommended by stereotactic method and not by ultrasound imaging to ensure proper localization given posttreatment changes and decrease in size from prior ultrasound on 01/10/2022 and biopsy on 01/16/2022. A clinical breast exam by your physician is recommended on an annual basis and results should be correlated with mammographic findings. This exam should not preclude additional follow-up of suspicious palpable abnormalities. Results were given to the patient verbally at the time of exam. Electronically signed and approved by: Shane Pinto DO
== END | disposition home or self-care (01) ==
LOC: RADUSWWP 14:09
PROVIDERS: ATTEND Internal Medicine
DX: C50.912 Malignant neoplasm of unspecified site of left female breast (principal); R21 Rash and other nonspecific skin eruption; Z78.0 Asymptomatic menopausal state; Z71.3 Dietary counseling and surveillance; Z98.890 Other specified postprocedural states

== ENCOUNTER → 2022-07-14 | Outpatient (CLI) | payer OTHER ==
--- NOTE | 2022-02-21 14:03 | P.PN ---
Progress Note - Text Progress Note Date: 02/21/22 Eunice's case was presented at tumor board today. The consensus is for neoadjuvant chemotherapy followed by surgery followed by radiation and then hormonal therapy. Her Oncotype DX was 69. I have called the patient she has an appointment with medical oncology already set. She will follow up here in 2 months.
[2022-07-14 16:56] VITALS: BP 130/77; PULSE 83; RESP 17; TEMP 97.8
--- NOTE | 2022-07-14 17:00 | P.PN ---
Subjective Progress Note Date: 07/14/22 Principal diagnosis: invasive ductal cancer left breast [id number] Invasive ductal carcinoma left breast/patient is receiving neoadjuvant chemotherapy Eunice is 61-year-old white female seen in consultation for Dr. Marcum regarding an invasive ductal carcinoma of the left breast. She underwent a bilateral screening mammogram on as well as an ultrasound of the left breast at that time. Nothing of concern was noted in the right breast. In the left breast a 2.7 cm lesion was noted near the 12 o'clock position. Additionally enlarged axillary lymph node was identified and biopsied this was recommended as well. [place] [id number]. Pathology revealed an invasive ductal carcinoma of the left breast, lymph node results were benign. The lesion is [id number]. The patient has been able to feel the spot for about two weeks. She gets mammograms regularly, however with COVID she was 2 years out. She is not complaining of any pain. She has had a right breast core lumpectomy approximately 20 years ago and told she had a precancerous lesion. She did not have any radiation therapy or chemotherapy. She is not complaining of any recent trauma or infection in the breast. She has never had a left breast biopsy. 05-04-22 The patient has been receiving neoadjuvant chemotherapy. She had genetic testing performed which revealed a variant of uncertain significance. She had an Oncotype performed which revealed the number to be 69. She therefore has been undergoing chemotherapy. She completed 4 courses of Adriamycin/Cytoxan she then took Taxol. She will finish the Taxol in mid June. The tumor has decreased in size. The tumor was ER positive and FL HER-2 negative. Caffeine: 1 pot/day nicotine: vapes since 2012, used to smoke < 1PPD started at 11 hormones: BCP: 3 years partial hysterectomy at 21; estrogen 10 years; Family History: mother: brain cancer father: lung maternal grandfather: lung aunt maternal: kidney cancer maternal uncle: throat cancer Hormonal History: menarche: 12 , breast fed: no, age at first : 17 menopause: hysterectomy at 21 for bleeding; left ovaries Surgical History: 3 spinal surgeries Neural modulator in her back Hysterectomy Medical History: Degenerative disc disease and spine High cholesterol Borderline diabetic Left breast invasive ductal carcinoma Social History: Nicotine/dates since 2012, used to smoke less than 1 pack per day started at 11 Alcohol: none drugs: none - Constitutional Constitutional: Reports sweats - EENT Comment: glaucoma Ears: bilateral: tinnitus, deny: decreased hearing Ears, nose, mouth and throat: Denies headache, Denies sore throat - Breasts Breasts: bilateral: as per HPI - Cardiovascular Cardiovascular: Reports shortness of breath, Denies chest pain - Respiratory Respiratory: Denies cough - Gastrointestinal Gastrointestinal: Denies abdominal pain, Denies diarrhea, Denies nausea, Denies vomiting - Genitourinary (Female) Genitourinary: Denies dysuria, Denies hematuria - Menstruation Menstruation: Reports post hysterectomy - Musculoskeletal Musculoskeletal: Reports as per HPI - Integumentary Integumentary: Denies pruritus, Denies rash - Neurological Neurological: Denies numbness, Denies weakness - Psychiatric Psychiatric: Denies anxiety, Denies depression - Endocrine Endocrine: Denies fatigue, Denies weight change - Hematologic/Lymphatic Comment: baby aspirin daily - Allergic/Immunologic Allergic/Immunologic: Reports as per HPI Past Medical History Past Medical History: Hyperlipidemia Additional Past Medical History / Comment(s): received J&J covid vaccine. Gabapentin for "hot flashes" History of Any Multi-Drug Resistant Organisms: None Reported Past Surgical History: Back Surgery, Hysterectomy, Tonsillectomy Additional Past Surgical History / Comment(s): back surgery x3,has spinal cord stimulator-battery rt hip lead to mid back,partial hyst Past Anesthesia/Blood Transfusion Reactions: No Reported Reaction Past Psychological History: No Psychological Hx Reported Smoking Status: Former smoker Past Alcohol Use History: None Reported Additional Past Alcohol Use History / Comment(s): quit smoking years ago, smoked approx 30 yrs <1ppd Past Drug Use History: None Reported - Past Family History Mother Family Medical History: Cancer Additional Family Medical History / Comment(s): brain CA Father Family Medical History: Cancer Additional Family Medical History / Comment(s): lung CA Medications and Allergies Home Medications Medication Instructions Recorded Confirmed Type Aspirin 81 mg PO DAILY 11/25/20 01/20/22 History Calcium Carbonate [Calcium] 600 mg PO DAILY 11/25/20 01/20/22 History Gabapentin 600 mg PO BID 11/25/20 01/20/22 History [place]-3 Fatty Acids/Fish Oil [Fish 1 each PO DAILY 11/25/20 01/20/22 History Oil 1,000 mg Softgel] Pravastatin Sodium [Pravachol] 20 mg PO DAILY 11/25/20 01/20/22 History Vitamin B Complex 1 each PO DAILY 12/13/20 01/20/22 History Allergies Allergy/AdvReac Type Severity Reaction Status Date / Time neosporin eye drops AdvReac Swelling Uncoded 01/20/22 11:36 Objective - Vital Signs Vital signs: Intake & Output 07/13/22 07/14/22 07/14/22 18:59 06:59 18:59 Weight 68.946 kg - Constitutional General appearance: Present: cooperative - EENT Eyes: Present: EOMI ENT: Present: hearing grossly normal - Neck Neck: Present: normal ROM - Respiratory Respiratory: bilateral: CTA - Cardiovascular Rhythm: regular Heart sounds: normal: S1, S2 - Gastrointestinal General gastrointestinal: Present: soft - Integumentary Integumentary: Present: normal turgor - Musculoskeletal Musculoskeletal: Present: gait normal - Psychiatric Psychiatric: Present: A&O x's 3, appropriate affect, intact judgment & insight - Additional findings Additional findings: Breast Exam: BRA: 38B Inspection: Port-A-Cath in place right chest wall, bilateral grade 2 ptosis Palpation: Right breast: Multiple positional exam fibrocystic changes no dominant masses or nodules of concern Right axilla: No adenopathy of concern Left breast: Multi-positional exam fibrocystic changes no dominant masses or nodules of concern, the area of prior tumor is not palpable at this time left axilla: Adenopathy of concern Assessment and Plan Assessment: impression: Invasive ductal carcinoma left breast T2 N0 M0 ER positive FL negative HER-2 n egative G3/status post chemotherapy with no residual palpable tumor Degenerative disc disease and spine High cholesterol Borderline diabetic Left breast invasive ductal carcinoma as above Plan: Needle localization left breast lumpectomy left [place] node injection, sentinel node biopsy left, possible left axillary node dissection, possible onco- plastic tissue transfer no mastopexy incision CC: Zamzam Trujillo
== END ==
LOC: WWCWWP 16:13
PROVIDERS: ATTEND Surgery
DX: D05.12 Intraductal carcinoma in situ of left breast (principal); E78.00 Pure hypercholesterolemia, unspecified; M19.90 Unspecified osteoarthritis, unspecified site; E78.5 Hyperlipidemia, unspecified; Z87.891 Personal history of nicotine dependence; Z88.1 Allergy status to other antibiotic agents; Z88.5 Allergy status to narcotic agent; Z88.0 Allergy status to penicillin

== ENCOUNTER → 2022-07-18 | Day surgery (SDC) | payer OTHER ==
[2022-07-13 10:58] VITALS: BMI 25.2
[~2022-07-18] MED LIST changes: +DEXAMETHASONE SOD PHOSPHATE 4 MG/ML 1 ML VIAL IV ONE; +HEPARIN SODIUM,PORCINE/PF 5,000 UNIT/0.5 ML SYRINGE SQ PRN; +HYDROmorphone (PF) 1 MG/ML ONE; +HYDROmorphone 0.5 MG/0.5 ML SYRINGE IVP PRN; +LACTATED RINGERS 1,000 ML IV ONE; -LACTATED RINGERS 1,000 ML IV SCH; +LIDOCAINE 0.5% (PF) 5 MG/ML (50 ML SDV) SQ ONE; +LIDOCAINE 1% (10MG/ML) FOR IV START INTRADERMA PRN; +LIDOCAINE 1% INJ 10MG/ML (5 ML VIAL-PF) SQ ONE; +LIDOCAINE 2% INJ 20 MG/ML (2 ML VIAL) ONE; +MIDAZOLAM 2 MG/2 ML VIAL IV PRN; +MIDAZOLAM 2 MG/2 ML VIAL ONE; +ONDANSETRON 4 MG/2 ML VIAL IVP ONE; +ONDANSETRON 4 MG/2 ML VIAL ONE; +PROPOFOL 10 MG/ML 20 ML VIAL IV ONE; +Pre Op ABX Message 1 EACH MISC MISCELLANE ONE; +ROCURONIUM 10 MG/ML (5 ML VIAL) IV ONE; +SODIUM CHLORIDE 0.9% 50 ML with ceFAZolin 2 GM IV ONE; +SUCCINYLCHOLINE CHLORIDE 200 MG/10 ML VIAL IV ONE; +fentaNYL (PF) 50 MCG/ML 2 ML AMP ONE
[2022-07-18] MEDS: LACTATED RINGERS 1,000 ML IV SCH ×2 (07:46→09:55)
--- NOTE | 2022-07-18 09:14 | P.NAPBC ---
NAPBC Queries - NAPBC Queries Was patient's case review presented at [facility] tumor board? If no, comment.: Yes Was patient's pathology reviewed at [facility]? If no, comment.: Yes Was breast conservation surgery offered? If no, comment.: Yes Was sentinel node biopsy offered? If no, comment.: Yes Was diagnosis confirmed by percutaneous core biopsy? If no, comment.: Yes Is patient mastectomy patient?: No Was a preop referral to reconstructive surgeon offered?: No Clinical Stage: [id number] invasive ductal cancer left breast
--- NOTE | 2022-07-18 10:19 | NM ---
EXAMINATION TYPE: NM sentinel node injection DATE OF EXAM: 07/18/2022 COMPARISON: 06/28/2022 HISTORY: 62-year-old female [id number], left breast cancer status post neoadjuvant chemotherapy. TECHNIQUE AND FINDINGS: The procedure of sentinel lymph node injection was explained to the patient. The benefits, alternatives, and risks were discussed. An informed consent was then obtained. Overlying skin is cleaned with sterile alcohol. Following this, 506 uCi Tc99m Tilmanocept was inject ed in the upper outer aspect of the left nipple intradermally. The patient tolerated the procedure well without any immediate complication. The patient was kept in the radiology department for short stay after the procedure and then taken to surgery for surgical p rocedure what is presumed intraoperative gamma probe will be used for sentinel lymph node detection. IMPRESSION: Left breast radiotracer injection for sentinel node localization as above.
--- NOTE | 2022-07-18 12:16 | P.OP ---
Date of Procedure: 07/18/22 Preoperative Diagnosis: Invasive ductal carcinoma left breast Postoperative Diagnosis: Same Procedure(s) Performed: Left breast needle localization lumpectomy, onco- plastic tissue transfer 104 cm, left sentinel node biopsy Anesthesia: [place] Surgeon: Alecia Bonilla Estimated Blood Loss (ml): 25 IV fluids (ml): 1,000 Pathology: other (Left axillary sentinel node, left breast lumpectomy) Condition: stable Disposition: same day Indications for Procedure: left breast invasive ductal cancer Operative Findings: Dense breast tissue Description of Procedure: The patient is a 62-year-old white female who is status post neoadjuvant chemotherapy for left breast invasive ductal carcinoma. Before coming to the operating room she was seen in the radiology department for racketing of the area of concern was performed as well as injection for sentinel node. The patient was then brought to the operative suite. In the operative suite and following induction of anesthesia the neoprobe was used to interrogate the axilla. An area of increased radioactivity was identified. The left breast and axilla were then prepped and draped in a sterile fashion. Using the neoprobe for guidance incision was made in the axilla. The area of greatest radioactivity was identified and dissection was performed down to this region. The surrounding axillary tissue was removed. 2 lymph nodes of concern were id entified. The fascia at a 10 second count of 13,512, the second had a count of 1710. The background count was 62. No adenopathy of concern was palpated in the axilla. Following this the wound was well irrigated. A #10 drain was placed. The deep tissues were closed using 3-0 Vicryl suture. The subcutaneous tissue was closed using a 3-0 Vicryl suture. This was followed by closure of the skin with a 4-0 Monocryl. The drain was secured using a nylon suture. Following this the area of the breast was approached. An incision was made between the 2 needles which were used to bracket the area of concern. Wide dissection was performed around the bracketed area. Dissection was performed posteriorly onto the pectoralis muscle. Anteriorly the dissection was immediately under the skin. The specimen was removed and painted for orientation. Radiograph revealed the area of concern had been obtained. The margins were obtained inferior lateral medial and superiorly. These were painted for orientation. The wound was well irrigated. Titanium clips were placed. Superior and inferior pole was performed. The superior patellar was 9 cm x 4 cm. The inferior pillar was 6 cm x 3 cm. The cavity was 9 cm x 6 cm. A total of 104 cm was mobilized. The [place] were brought together and secured using 3-0 Vicryl suture. The subcutaneous tissue was closed using 3-0 Vicryl suture. The skin was closed using 4-0 Monocryl. All instrument and sponge counts were correct at the end of the case. Patient tolerated the procedure in stable condition.
--- NOTE | 2022-07-18 12:18 | P.DS ---
Providers Attending physician: Alecia Bonilla Primary care physician: Michell Koenig Plan - Discharge Summary Discharge Rx Participant: No New Discharge Prescriptions: No Action Pravastatin Sodium [Pravachol] 20 mg PO HS Vitamin B Complex 1 each PO DAILY Gabapentin 600 mg PO BID Calcium Carbonate [Calcium] 600 mg PO HS Biotin [Biotin Disolve] 10,000 mcg PO DAILY Cholecalciferol (Vitamin D3) [Vitamin D3 (125 MCG = 5,000 IU)] 125 mcg PO DAILY Acetaminophen-Codeine 300-30mg [Tylenol w/codeine #3] 1 tab PO Q6H PRN 3 Days #12 tablet PRN Reason: Pain Discharge Medication List Calcium Carbonate [Calcium] 600 mg PO HS 11/25/20 [History] Gabapentin 600 mg PO BID 11/25/20 [History] Pravastatin Sodium [Pravachol] 20 mg PO HS 11/25/20 [History] Vitamin B Complex 1 each PO DAILY 12/13/20 [History] Biotin [Biotin Disolve] 10,000 mcg PO DAILY 07/13/22 [History] Cholecalciferol (Vitamin D3) [Vitamin D3 (125 MCG = 5,000 IU)] 125 mcg PO DAILY 07/13/22 [History] Acetaminophen-Codeine 300-30mg [Tylenol w/codeine #3] 1 tab PO Q6H PRN 3 Days #12 tablet 07/14/22 [Rx] Follow up Appointment(s)/Referral(s): Alecia Bonilla MD [STAFF PHYSICIAN] - 07/28/22 2:00 pm Activity/Diet/Wound Care/Special Instructions: Do not drive until seen by Dr. Qiu Teach patient drain care, drain and recorded twice a day and as needed Wear bra at all times unless showering May shower after 48 hours Discharge Disposition: HOME SELF-CARE
[2022-07-18 12:33] VITALS: TEMP 97.6
[2022-07-18 15:04] VITALS: RESP 16
[2022-07-18 15:16] VITALS: BP 132/63; PULSE 69
== END | disposition home or self-care (01) ==
LOC: OR 07:09
PROVIDERS: ATTEND Surgery
DX: C50.912 Malignant neoplasm of unspecified site of left female breast (principal); Z92.21 Personal history of antineoplastic chemotherapy; Z88.0 Allergy status to penicillin; Z88.1 Allergy status to other antibiotic agents; Z88.5 Allergy status to narcotic agent; E78.00 Pure hypercholesterolemia, unspecified; Z79.1 Long term (current) use of non-steroidal anti-inflammatories (NSAID); Z79.83 Long term (current) use of bisphosphonates; Z79.891 Long term (current) use of opiate analgesic; Z79.899 Other long term (current) drug therapy; F17.210 Nicotine dependence, cigarettes, uncomplicated; Z86.16 Personal history of COVID-19; Z80.1 Family history of malignant neoplasm of trachea, bronchus and lung; Z80.2 Family history of malignant neoplasm of other respiratory and intrathoracic organs; Z80.51 Family history of malignant neoplasm of kidney; Z80.8 Family history of malignant neoplasm of other organs or systems
CPT/HCPCS: 19301; 38525; 14001; 76098; 19281; 19282; 38792; A9520; J2250; J0330; J1100; J0690; J2405; J2001 ×3; J3010; J1170; J2704; J1644

== ENCOUNTER → 2022-07-28 | Outpatient (CLI) | payer OTHER ==
--- NOTE | 2022-07-28 14:11 | P.PN ---
Progress Note - Text Progress Note Date: 07/28/22 Eunice is a 62-year-old white female status post left breast lumpectomy [place]inel [place] [id number]. Her pathology revealed 7 nodes all negative for tumor as well as the lumpectomy site revealing no residual cancer. This was reviewed in detail with radiology to assure that we had removed the entire site. Patient is doing well at this time with no complaints Physical exam: Lungs: Clear Heart: Regular rate and rhythm Incision: Clean and dry breast and axilla: Minimal YANELI output Plan: A YANELI drain Follow-up medical oncology Follow-up radiation oncology Follow-up in 4 months CC: Zamzam Trujillo; Dr. Marcum
[2022-07-28 14:27] VITALS: BP 142/80; PULSE 99; RESP 17; TEMP 97.8
== END ==
LOC: WWCWWP 13:46
PROVIDERS: ATTEND Surgery
DX: Z85.3 Personal history of malignant neoplasm of breast (principal); Z88.5 Allergy status to narcotic agent; Z88.0 Allergy status to penicillin; Z91.048 Other nonmedicinal substance allergy status

== ENCOUNTER → 2022-11-24 | Outpatient (CLI) | payer OTHER ==
[2022-11-24 13:30] VITALS: BP 121/79; PULSE 85; RESP 18; TEMP 98.1
--- NOTE | 2022-11-24 13:54 | P.PN ---
Subjective Progress Note Date: 11/24/22 Principal diagnosis: left breast stage II invasive ductal cancer Invasive ductal carcinoma left breast Eunice is 61-year-old white female seen in consultation for Dr. Marcum regarding an invasive ductal carcinoma of the left breast. She underwent a bilateral screening mammogram on as well as an ultrasound of the left breast at that time. Nothing of concern was noted in the right breast. In the left breast a 2.7 cm lesion was noted near the 12 o'clock position. Additionally enlarged axillary lymph node was identified and biopsied this was recommended as well. She underwent core biopsy of both of these areas on . Pathology revealed an invasive ductal carcinoma of the left breast, lymph node results were benign. The lesion is [id number]. StageIIA. The patient had been able to feel the spot for about two weeks. She gets mammograms regularly, however with COVID she was 2 years out. She was not complaining of any pain. He has had a right breast core lumpectomy approximately 20 years ago and told she had a precancerous lesion. She did not have any radiation therapy or chemotherapy. She is not complaining of any recent trauma or infection in the breast. She has never had a left breast biopsy. She underwent neoadjuvant chemotherapy wtih AC-T (oncotype 69) followed by lumpectomy and SNB on 07-18-22. This was T0 N0 disease on pathology. She completed radiation therapy in August 2022. She is presently on anastrozole and has had no side effects. She is also on Fosamax. Caffeine: 1 pot/day nicotine: vapes since 2012, used to smoke < 1PPD started at 11 hormones: BCP: 3 years partial hysterectomy at 21; estrogen 10 years; Family History: mother: brain cancer father: lung maternal grandfather: lung aunt maternal: kidney cancer maternal uncle: throat cancer Hormonal History: menarche: 12 , breast fed: no, age at first : 17 menopause: hysterectomy at 21 for bleeding; left ovaries Surgical History: 3 spinal surgeries Neural modulator Hysterectomy Medical History: Degenerative disc disease and spine High cholesterol Borderline diabetic Social History: Nicotine/dates since 2012, used to smoke less than 1 pack per day started at 11 Alcohol: none drugs: none - Constitutional Constitutional: Reports sweats - EENT Comment: glaucoma Ears: bilateral: tinnitus, deny: decreased hearing Ears, nose, mouth and throat: Denies headache, Denies sore throat - Breasts Breasts: bilateral: as per HPI - Cardiovascular Cardiovascular: Reports shortness of breath, Denies chest pain - Respiratory Respiratory: Denies cough - Gastrointestinal Gastrointestinal: Denies abdominal pain, Denies diarrhea, Denies nausea, Denies vomiting - Genitourinary (Female) Genitourinary: Denies dysuria, Denies hematuria - Menstruation Menstruation: Reports post hysterectomy - Musculoskeletal Musculoskeletal: Reports as per HPI - Integumentary Integumentary: Denies pruritus, Denies rash - Neurological Neurological: Denies numbness, Denies weakness - Psychiatric Psychiatric: Denies anxiety, Denies depression - Endocrine Endocrine: Denies fatigue, Denies weight change - Hematologic/Lymphatic Comment: baby aspirin daily - Allergic/Immunologic Allergic/Immunologic: Reports as per HPI Past Medical History Past Medical History: Hyperlipidemia Additional Past Medical History / Comment(s): received J&J covid vaccine. Gabapentin for "hot flashes" History of Any Multi-Drug Resistant Organisms: None Reported Past Surgical History: Back Surgery, Hysterectomy, Tonsillectomy Additional Past Surgical History / Comment(s): back surgery x3,has spinal cord stimulator-battery rt hip lead to mid back,partial hyst Past Anesthesia/Blood Transfusion Reactions: No Reported Reaction Past Psychological History: No Psychological Hx Reported Smoking Status: Former smoker Past Alcohol Use History: None Reported Additional Past Alcohol Use History / Comment(s): quit smoking years ago, smoked approx 30 yrs <1ppd Past Drug Use History: None Reported - Past Family History Mother Family Medical History: Cancer Additional Family Medical History / Comment(s): brain CA Father Family Medical History: Cancer Additional Family Medical History / Comment(s): lung CA Medications and Allergies Home Medications Medication Instructions Recorded Confirmed Type Aspirin 81 mg PO DAILY 11/25/20 01/20/22 History Calcium Carbonate [Calcium] 600 mg PO DAILY 11/25/20 01/20/22 History Gabapentin 600 mg PO BID 11/25/20 01/20/22 History [place]-3 Fatty Acids/Fish Oil [Fish 1 each PO DAILY 11/25/20 01/20/22 History Oil 1,000 mg Softgel] Pravastatin Sodium [Pravachol] 20 mg PO DAILY 11/25/20 01/20/22 History Vitamin B Complex 1 each PO DAILY 12/13/20 01/20/22 History Allergies Allergy/AdvReac Type Severity Reaction Status Date / Time neosporin eye drops AdvReac Swelling Uncoded 01/20/22 11:36 Objective - Vital Signs Vital signs: Vital Signs Temp 98.1 F 11/24/22 13:26 Pulse 85 11/24/22 13:26 Resp 18 11/24/22 13:26 BP 121/79 11/24/22 13:26 Pulse Ox 97 11/24/22 13:26 FiO2 Intake & Output 11/23/22 11/24/22 11/24/22 18:59 06:59 18:59 Weight 69.853 kg - Constitutional General appearance: Present: cooperative - EENT Eyes: Present: EOMI ENT: Present: hearing grossly normal - Neck Neck: Present: normal ROM - Respiratory Respiratory: bilateral: CTA - Cardiovascular Heart sounds: normal: S1, S2 - Integumentary Integumentary: Present: normal turgor - Musculoskeletal Musculoskeletal: Present: gait normal - Psychiatric Psychiatric: Present: A&O x's 3, appropriate affect, intact judgment & insight - Additional findings Additional findings: Breast Eam: BRA: 38C inspection: Left breast slightly larger than right breast biateral grade 2 ptosis Palpation: Right breast: Multiple positional exam fibrocystic changes no dominant masses or nodules of concern Right axilla: No adenopathy of concern Left breast: Biopsy site left breast clean and dry, postsurgical and radiation changes no dominant masses or nodules of concern Left axilla: No adenopathy of concern Assessment and Plan Assessment: Impression: Degenerative disc disease and spine High cholesterol Borderline diabetic left breast cancer stage II, no evidence of recurrence Plan: continue arimidex alendronate 1 time a week bilateral mammogram in December 2022 follow up after mammogram follow up medical oncology follow up radiation oncology CC: Dr. Marcum
== END ==
LOC: WWCWWP 13:11
PROVIDERS: ATTEND Surgery
DX: C50.912 Malignant neoplasm of unspecified site of left female breast (principal); E11.9 Type 2 diabetes mellitus without complications; E78.00 Pure hypercholesterolemia, unspecified; R59.0 Localized enlarged lymph nodes; Z79.811 Long term (current) use of aromatase inhibitors; Z79.82 Long term (current) use of aspirin; Z80.1 Family history of malignant neoplasm of trachea, bronchus and lung; Z87.891 Personal history of nicotine dependence; Z92.3 Personal history of irradiation; Z88.0 Allergy status to penicillin; Z88.5 Allergy status to narcotic agent; Z91.048 Other nonmedicinal substance allergy status

== ENCOUNTER → 2023-01-17 | Outpatient (CLI) | payer OTHER ==
--- NOTE | 2023-01-17 13:52 | MM ---
Reason for Exam: Additional evaluation requested from prior study. Last screening mammogram was performed 12 month(s) ago. Patient History: Menarche at age 12. First Full-Term at age 16. Hysterectomy at age 22. Postmenopausal. Breast cancer, left, age 61. Breast cancer, left, age 61. Estrogen, starting at age 44 for 1 year. 07/18/2022, Lumpectomy on the Left side. 07/18/2022, Benign MG pre op needle loc LT on the left side. 07/18/2022, MG pre op loc each addl LT on the Left side. 01/16/2022, Malignant US biopsy breast VAD LT on the left side. 01/16/2022, Malignant US biopsy breast add'l VAD LT on the left side. Benign Excisional Biopsy on the right side. Benign Excisional Biopsy on the right side. Prior Study Comparison: 01/11/2018 Bilateral MG screening mammo w CAD - 2, [place]. 03/27/2019 Bilateral MG 3D screening mammo w/cad, [place]. 01/10/2022 Bilateral MG 3D diag mammo w/cad [facility], [facility]. 01/16/2022 Left MG diagnostic mammo LT wo CAD., [facility]. 06/28/2022 Left US breast LT, [facility]. Tissue Density: The breast tissue is heterogeneously dense. This may lower the sensitivity of mammography. Findings: Analyzed By CAD. There is asymmetric breast tissue with larger right breast compared to the left. Surgical clips are within the posterior left mid breast. There is increased density on the left compared to the right. There is marked diffuse thickening throughout the skin on the left side Close observation appear to be some punctate calcifications at the biopsy site. Magnification views were performed. A suspicious pelvic calcifications is not identified. However this appears to be a change from presurgical evaluation. Short-term follow-up is recommended with follow-up 3 months including magnification views. Overall Assessment: Probably benign, BI-RAD 3 Management: Diagnostic Mammogram of the left breast in 3 months. A negative mammogram report should not preclude additional follow up of suspicious palpable abnormalities. Patient should continue monthly self breast exam. A clinical breast exam by your physician is recommended on an annual basis and results should be correlated with mammographic findings. Electronically signed and approved by: Kenroy Mendoza D.O. Radiologis
== END | disposition home or self-care (01) ==
LOC: RADMAMWWP 12:45
PROVIDERS: ATTEND Radiology Radiation Oncology
DX: C50.412 Malignant neoplasm of upper-outer quadrant of left female breast (principal); Z78.0 Asymptomatic menopausal state; Z17.0 Estrogen receptor positive status [ER+]
CPT/HCPCS: 77062; 77066

== ENCOUNTER → 2023-01-18 | Outpatient (CLI) | payer OTHER ==
[2023-01-18 15:25] VITALS: BP 117/78; PULSE 92; RESP 18; TEMP 98.1
--- NOTE | 2023-01-18 15:47 | P.PN ---
Subjective Progress Note Date: 01/18/23 left breast stage II invasive ductal cancer Eunice is 61-year-old white female seen in consultation for Dr. Marcum regarding an invasive ductal carcinoma of the left breast. She underwent a bilateral screening mammogram on as well as an ultrasound of the left breast at that time. Nothing of concern was noted in the right breast. In the left breast a 2.7 cm lesion was noted near the 12 o'clock position. Additionally enlarged axillary lymph node was identified and biopsied this was recommended as well. She underwent core biopsy of both of these areas on . Pathology revealed an invasive ductal carcinoma of the left breast, lymph node results were benign. The lesion is [id number]. StageIIA. The patient had been able to feel the spot for about two weeks. She gets mammograms regularly, however with COVID she was 2 years out. She was not complaining of any pain. He has had a right breast core lumpectomy approximately 20 years ago and told she had a precancerous lesion. She did not have any radiation therapy or chemotherapy. She is not complaining of any recent trauma or infection in the breast. She has never had a left breast biopsy. She underwent neoadjuvant chemotherapy wtih AC-T (oncotype 69) followed by lumpectomy and SNB on 07-18-22. This was T0 N0 disease on pathology. She completed radiation therapy in August 2022. She is presently on anastrozole and has had no side effects. She is also on Fosamax. 01-18-23 Note radiation oncology [id number] reviewed she is going to follow-up with radiation oncology following a bilateral mammogram December bilateral mammogram 01-17-23 BIRAD 3 diagnostic mammogram of left breast in 3 months, she is not complaining of any new lumps masses or nodules in either breast Patient is not complaining of any new lumps masses or nodules of concern in either breast. Caffeine: 1 pot/day nicotine: vapes since 2012, used to smoke < 1PPD started at 11 hormones: BCP: 3 years partial hysterectomy at 21; estrogen 10 years; Family History: mother: brain cancer father: lung maternal grandfather: lung aunt maternal: kidney cancer maternal uncle: throat cancer Hormonal History: menarche: 12 , breast fed: no, age at first : 17 menopause: hysterectomy at 21 for bleeding; left ovaries Surgical History: 3 spinal surgeries Neural modulator Hysterectomy left breast lumpectomy and SNB Medical History: Degenerative disc disease and spine High cholesterol Borderline diabetic Social History: Nicotine/dates since 2012, used to smoke less than 1 pack per day started at 11 Alcohol: none drugs: none - Constitutional Constitutional: Reports sweats - EENT Comment: glaucoma Ears: bilateral: tinnitus, deny: decreased hearing Ears, nose, mouth and throat: Denies headache, Denies sore throat - Breasts Breasts: bilateral: as per HPI - Cardiovascular Cardiovascular: Reports shortness of breath, Denies chest pain - Respiratory Respiratory: Denies cough - Gastrointestinal Gastrointestinal: Denies abdominal pain, Denies diarrhea, Denies nausea, Denies vomiting - Genitourinary (Female) Genitourinary: Denies dysuria, Denies hematuria - Menstruation Menstruation: Reports post hysterectomy - Musculoskeletal Musculoskeletal: Reports as per HPI - Integumentary Integumentary: Denies pruritus, Denies rash - Neurological Neurological: Denies numbness, Denies weakness - Psychiatric Psychiatric: Denies anxiety, Denies depression - Endocrine Endocrine: Denies fatigue, Denies weight change - Hematologic/Lymphatic Comment: baby aspirin daily - Allergic/Immunologic Allergic/Immunologic: Reports as per HPI Past Medical History Past Medical History: Hyperlipidemia Additional Past Medical History / Comment(s): received J&J covid vaccine. Gabapentin for "hot flashes" History of Any Multi-Drug Resistant Organisms: None Reported Past Surgical History: Back Surgery, Hysterectomy, Tonsillectomy Additional Past Surgical History / Comment(s): back surgery x3,has spinal cord stimulator-battery rt hip lead to mid back,partial hyst Past Anesthesia/Blood Transfusion Reactions: No Reported Reaction Past Psychological History: No Psychological Hx Reported Smoking Status: Former smoker Past Alcohol Use History: None Reported Additional Past Alcohol Use History / Comment(s): quit smoking years ago, smoked approx 30 yrs <1ppd Past Drug Use History: None Reported - Past Family History Mother Family Medical History: Cancer Additional Family Medical History / Comment(s): brain CA Father Family Medical History: Cancer Additional Family Medical History / Comment(s): lung CA Medications and Allergies Home Medications Medication Instructions Recorded Confirmed Type Aspirin 81 mg PO DAILY 11/25/20 01/20/22 History Calcium Carbonate [Calcium] 600 mg PO DAILY 11/25/20 01/20/22 History Gabapentin 600 mg PO BID 11/25/20 01/20/22 History [place]-3 Fatty Acids/Fish Oil [Fish 1 each PO DAILY 11/25/20 01/20/22 History Oil 1,000 mg Softgel] Pravastatin Sodium [Pravachol] 20 mg PO DAILY 11/25/20 01/20/22 History Vitamin B Complex 1 each PO DAILY 12/13/20 01/20/22 History Allergies Allergy/AdvReac Type Severity Reaction Status Date / Time neosporin eye drops AdvReac Swelling Uncoded 01/20/22 11:36 Objective - Vital Signs Vital signs: Vital Signs Temp 98.1 F 01/18/23 15:21 Pulse 92 01/18/23 15:21 Resp 18 01/18/23 15:21 BP 117/78 01/18/23 15:21 Pulse Ox 97 01/18/23 15:21 FiO2 Intake & Output 01/17/23 01/18/23 01/18/23 18:59 06:59 18:59 Weight 68.492 kg - Constitutional General appearance: Present: cooperative - EENT Eyes: Present: EOMI ENT: Present: hearing grossly normal - Neck Neck: Present: normal ROM - Respiratory Respiratory: bilateral: CTA - Cardiovascular Heart sounds: normal: S1, S2 - Integumentary Integumentary: Present: normal turgor - Musculoskeletal Musculoskeletal: Present: gait normal - Psychiatric Psychiatric: Present: A&O x's 3, appropriate affect, intact judgment & insight - Additional findings Additional findings: Breast Exam: BRA: 38C inspection: Breast postoperative changes, right breast slightly larger than left breast Palpation: Right breast: Multi-positional exam fibrocystic changes no dominant masses or nodules of concern Right axilla: No adenopathy of concern Left breast: Biopsy site left breast clean and dry, postsurgical and radiation changes no dominant masses or nodules of concern Left axilla: No adenopathy of concern Assessment and Plan Assessment: Impression: Degenerative disc disease and spine High cholesterol Borderline diabetic left breast cancer stage II, no evidence of recurrence bilateral mammogram 01-17-23 BIRAD 3; repeat in 3 months Plan: continue arimidex alendronate 1 time a week left breast mammogram in 3 months with appointment at that time follow up after mammogram follow up medical oncology follow up radiation oncology CC: Dr. Marcum
== END ==
LOC: WWCWWP 15:10
PROVIDERS: ATTEND Surgery
DX: Z12.31 Encounter for screening mammogram for malignant neoplasm of breast (principal); M53.3 Sacrococcygeal disorders, not elsewhere classified; E78.00 Pure hypercholesterolemia, unspecified; R73.03 Prediabetes; Z85.3 Personal history of malignant neoplasm of breast; Z87.891 Personal history of nicotine dependence; Z92.3 Personal history of irradiation; Z88.0 Allergy status to penicillin; Z88.5 Allergy status to narcotic agent; Z88.8 Allergy status to other drugs, medicaments and biological substances

== ENCOUNTER → 2023-04-24 | Outpatient (CLI) | payer MEDICARE, OTHER ==
--- NOTE | 2023-04-24 09:18 | MM ---
Reason for Exam: Follow-up at short interval from prior study. Last screening mammogram was performed 3 month(s) ago. Patient History: Menarche at age 12. First Full-Term at age 16. Hysterectomy at age 22. Postmenopausal. Breast cancer, left, age 61. Breast cancer, left, age 61. Estrogen, starting at age 44 for 1 year. 07/18/2022, Lumpectomy on the Left side. 07/18/2022, Benign MG pre op needle loc LT on the left side. 07/18/2022, MG pre op loc each addl LT on the Left side. 01/16/2022, Malignant US biopsy breast VAD LT on the left side. 01/16/2022, Malignant US biopsy breast add'l VAD LT on the left side. Benign Excisional Biopsy on the right side. Benign Excisional Biopsy on the right side. Prior Study Comparison: 01/10/2022 Bilateral MG 3D diag mammo w/cad [facility], [facility]. 01/16/2022 Left MG diagnostic mammo LT wo CAD., [facility]. 01/17/2023 Bilateral MG 3D diag mammo w/cad [facility], [facility]. Tissue Density: Left: The breast tissue is heterogeneously dense. This may lower the sensitivity of mammography. Findings: Analyzed By CAD. Atrophic changes of lumpectomy and radiation therapy. Extensive skin thickening. No evidence for recurrent mass. No suspicious calcifications identified at this time. Overall Assessment: Benign, BI-RAD 2 Management: Diagnostic Mammogram of both breasts in 9 months. . Results were given to the patient verbally at the time of exam. Patient should continue monthly self-breast exams. A clinical breast exam by your physician is recommended on an annual basis. This exam should not preclude additional follow-up of suspicious palpable abnormalities. Note on Virgie scores and lifetime risk: 1. A Virgie score greater than 3% is considered moderate risk. If this is the case, consider specialist referral to assess eligibility for a risk reducing agent. 2. If overall lifetime risk for the development of breast cancer is 20% or higher, the patient may qualify for future screening with alternating mammogram and breast MRI. Electronically signed and approved by: Kevin Bashir M.D. Radiologis
== END | disposition home or self-care (01) ==
LOC: RADMAMWWP 08:25
PROVIDERS: ATTEND Surgery
DX: R92.332 Mammographic heterogeneous density, left breast (principal); Z85.3 Personal history of malignant neoplasm of breast; Z78.0 Asymptomatic menopausal state
CPT/HCPCS: 77065; G0279; 77061

== ENCOUNTER → 2023-04-25 | Outpatient (CLI) | payer OTHER ==
[2023-04-25 09:22] VITALS: BP 122/71; PULSE 86; RESP 17; TEMP 97.8
--- NOTE | 2023-04-25 09:47 | P.PN ---
Subjective Progress Note Date: 04/25/23 Principal diagnosis: [id number]-Her2-G3. StageII left breast; [id number] left breast stage IIA invasive ductal carcinoma, diagnosed 2021 Eunice is 61-year-old white female seen in consultation for Dr. Marcum regarding an invasive ductal carcinoma of the left breast. She underwent a bilateral screening mammogram on as well as an ultrasound of the left breast at that time. Nothing of concern was noted in the right breast. In the left breast a 2.7 cm lesion was noted near the 12 o'clock position. Additionally enlarged axillary lymph node was identified and biopsied this was recommended as well. She underwent core biopsy of both of these areas on . Pathology revealed an invasive ductal carcinoma of the left breast, lymph node results were benign. The lesion is [id number]-Her2-G3. StageIIA. The patient had been able to feel the spot for about two weeks. She gets mammograms regularly, however with COVID she was 2 years out. She was not complaining of any pain. He has had a right breast core lumpectomy approximately 20 years ago and told she had a precancerous lesion. She did not have any radiation therapy or chemotherapy. She is not complaining of any recent trauma or infection in the breast. She has never had a left breast bi opsy. She underwent neoadjuvant chemotherapy wtih AC-T (oncotype 69) followed by lumpectomy and SNB on 07-18-22. This was T0 N0 disease on pathology. She completed radiation therapy in August 2022. She is presently on anastrozole and has had no side effects. She is also on Fosamax. bilateral mammogram 01-17-23 BIRAD 3 diagnostic mammogram of left breast in 3 months, she is not complaining of any new lumps masses or nodules in either breast repeat left breast mammogram on 04-24-23 BIRAD 2; bilateral mammogram in 9 months Patient is not complaining of any new lumps masses or nodules of concern in either breast. Patient is no longer taking gabapentin but she is taking voezah for hot flashes it is non-hormonal Caffeine: 1 pot/day nicotine: vapes since 2012, used to smoke < 1PPD started at 11 hormones: BCP: 3 years partial hysterectomy at 21; estrogen 10 years; Family History: mother: brain cancer father: lung maternal grandfather: lung aunt maternal: kidney cancer maternal uncle: throat cancer Hormonal History: menarche: 12 , breast fed: no, age at first : 17 menopause: hysterectomy at 21 for bleeding; left ovaries Surgical History: 3 spinal surgeries Neural modulator Hysterectomy left breast lumpectomy and SNB Medical History: Degenerative disc disease and spine High cholesterol Borderline diabetic Social History: Nicotine/dates since 2012, used to smoke less than 1 pack per day started at 11 Alcohol: none drugs: none - Constitutional Constitutional: Reports sweats - EENT Comment: glaucoma Ears: bilateral: tinnitus, deny: decreased hearing Ears, nose, mouth and throat: Denies headache, Denies sore throat - Breasts Breasts: bilateral: as per HPI - Cardiovascular Cardiovascular: Reports shortness of breath, Denies chest pain - Respiratory Respiratory: Denies cough - Gastrointestinal Gastrointestinal: Denies abdominal pain, Denies diarrhea, Denies nausea, Denies vomiting - Genitourinary (Female) Genitourinary: Denies dysuria, Denies hematuria - Menstruation Menstruation: Reports post hysterectomy - Musculoskeletal Musculoskeletal: Reports as per HPI - Integumentary Integumentary: Denies pruritus, Denies rash - Neurological Neurological: Denies numbness, Denies weakness - Psychiatric Psychiatric: Denies anxiety, Denies depression - Endocrine Endocrine: Denies fatigue, Denies weight change - Hematologic/Lymphatic Comment: baby aspirin daily - Allergic/Immunologic Allergic/Immunologic: Reports as per HPI Past Medical History Past Medical History: Hyperlipidemia Additional Past Medical History / Comment(s): received J&J covid vaccine. Gabapentin for "hot flashes" History of Any Multi-Drug Resistant Organisms: None Reported Past Surgical History: Back Surgery, Hysterectomy, Tonsillectomy Additional Past Surgical History / Comment(s): back surgery x3,has spinal cord stimulator-battery rt hip lead to mid back,partial hyst Past Anesthesia/Blood Transfusion Reactions: No Reported Reaction Past Psychological History: No Psychological Hx Reported Smoking Status: Former smoker Past Alcohol Use History: None Reported Additional Past Alcohol Use History / Comment(s): quit smoking years ago, smoked approx 30 yrs <1ppd Past Drug Use History: None Reported - Past Family History Mother Family Medical History: Cancer Additional Family Medical History / Comment(s): brain CA Father Family Medical History: Cancer Additional Family Medical History / Comment(s): lung CA Medications and Allergies Home Medications Medication Instructions Recorded Confirmed Type Aspirin 81 mg PO DAILY 11/25/20 01/20/22 History Calcium Carbonate [Calcium] 600 mg PO DAILY 11/25/20 01/20/22 History Gabapentin 600 mg PO BID 11/25/20 01/20/22 History [place]-3 Fatty Acids/Fish Oil [Fish 1 each PO DAILY 11/25/20 01/20/22 History Oil 1,000 mg Softgel] Pravastatin Sodium [Pravachol] 20 mg PO DAILY 11/25/20 01/20/22 History Vitamin B Complex 1 each PO DAILY 12/13/20 01/20/22 History Allergies Allergy/AdvReac Type Severity Reaction Status Date / Time neosporin eye drops AdvReac Swelling Uncoded 01/20/22 11:36 Objective - Vital Signs Vital signs: Vital Signs Temp 97.8 F 04/25/23 09:15 Pulse 86 04/25/23 09:15 Resp 17 04/25/23 09:15 BP 122/71 04/25/23 09:15 Pulse Ox 98 04/25/23 09:15 FiO2 Intake & Output 04/24/23 04/25/23 04/25/23 18:59 06:59 18:59 Weight 66.224 kg - Constitutional General appearance: Present: cooperative - EENT Eyes: Present: EOMI ENT: Present: hearing grossly normal - Neck Neck: Present: normal ROM - Respiratory Respiratory: bilateral: CTA - Cardiovascular Heart sounds: normal: S1, S2 - Gastrointestinal General gastrointestinal: Present: soft - Integumentary Integumentary: Present: normal turgor - Musculoskeletal Musculoskeletal: Present: gait normal - Psychiatric Psychiatric: Present: A&O x's 3, appropriate affect, intact judgment & insight - Additional findings Additional findings: Breast Exam: BRA: 38C inspection: Breast postoperative changes, right breast slightly larger than left breast; symmetry of the nipple areolar complex with a grade 3 ptosis on the right and a grade 1 ptosis on the left Palpation: Right breast: Multi-positional exam fibrocystic changes no dominant masses or nodules of concern Right axilla: No adenopathy of concern Left breast: postsurgical and radiation changes no dominant masses or nodules of concern in the left breast Left axilla: No adenopathy of concern Assessment and Plan Assessment: Impression: Degenerative disc disease and spine High cholesterol Borderline diabetic left breast cancer stage II, no evidence of recurrence bilateral mammogram 01-17-23 BIRAD 3; repeat in 3 months left breast mammogram; done 04-24-23 BIRAD 2 Plan: continue arimidex alendronate 1 time a week Bilateral mamm in 9 months follow up medical oncology follow up radiation oncology I would like to consider mastopexy procedure on the right breast secondary to the asymmetry, she understands that we would only do this if she stops vaping prior to the procedure CC: Dr. Marcum Additional CC's: Katie Trujillo
== END ==
LOC: WWCWWP 08:43
PROVIDERS: ATTEND Surgery
DX: M51.9 Unspecified thoracic, thoracolumbar and lumbosacral intervertebral disc disorder (principal); E78.00 Pure hypercholesterolemia, unspecified; E11.9 Type 2 diabetes mellitus without complications; Z85.3 Personal history of malignant neoplasm of breast; Z87.891 Personal history of nicotine dependence; Z92.3 Personal history of irradiation; Z88.8 Allergy status to other drugs, medicaments and biological substances; Z88.0 Allergy status to penicillin; Z88.5 Allergy status to narcotic agent

== ENCOUNTER → 2023-06-01 | Outpatient (CLI) | payer MEDICARE, OTHER ==
[2023-06-01 13:05] VITALS: BP 136/85; PULSE 87; RESP 17; TEMP 97.8
--- NOTE | 2023-06-01 13:07 | P.PN ---
Subjective Progress Note Date: 06/01/23 Progress Note Date: 06-01-23 Principal diagnosis: [id number]-G3. Stage II left breast; [id number] left breast stage IIA invasive ductal carcinoma, diagnosed 2021 Eunice is 61-year-old white female seen in consultation for Dr. Marcum regarding an invasive ductal carcinoma of the left breast. She underwent a bilateral screening mammogram on as well as an ultrasound of the left breast at that time. Nothing of concern was noted in the right breast. In the left breast a 2.7 cm lesion was noted near the 12 o'clock position. Additionally enlarged axillary lymph node was identified and biopsied this was recommended as well. She underwent core biopsy of both of these areas on . Pathology revealed an invasive ductal carcinoma of the left breast, lymph node results were benign. The lesion is [id number]-Her2-G3. StageIIA. The patient had been able to feel the spot for about two weeks. She gets mammograms regularly, however with COVID she was 2 years out. She was not complaining of any pain. He has had a right breast core lumpectomy approximately 20 years ago and told she had a precancerous lesion. She did not have any radiation therapy or chemotherapy. She is not complaining of any recent trauma or infection in the breast. She has never had a left breast biopsy. She underwent neoadjuvant chemotherapy wtih AC-T (oncotype 69) followed by lumpectomy and SNB on 07-18-22. This was T0 N0 disease on pathology. She completed radiation therapy in August 2022. She is presently on anastrozole and has had no side effects. She is also on Fosamax. 07-18-22 left breast lumpectomy and SNB; no residual cancer, and nodes (-) completed radiation of the left breast on 09-15-22 bilateral mammogram 01-17-23 BIRAD 3 diagnostic mammogram of left breast in 3 months, she is not complaining of any new lumps masses or nodules in either breast repeat left breast mammogram on 04-24-23 BIRAD 2; bilateral mammogram in 9 months Patient is not complaining of any new lumps masses or nodules of concern in either breast. Patient is no longer taking gabapentin but she is taking vatoza for hot flashes it is non-hormonal She has asymmetry of the breast with the right breast being larger than the left breast. This makes it difficult for her to find clothes the fit properly. Caffeine: 1 pot/day nicotine: vapes since 2012, used to smoke < 1PPD started at 11; stopped the pain approximately 1 month ago hormones: BCP: 3 years partial hysterectomy at 21; estrogen 10 years; Family History: mother: brain cancer father: lung maternal grandfather: lung aunt maternal: kidney cancer maternal uncle: throat cancer Hormonal History: menarche: 12 , breast fed: no, age at first : 17 menopause: hysterectomy at 21 for bleeding; left ovaries Surgical History: 3 spinal surgeries Neural modulator Hysterectomy left breast lumpectomy and SNB Medical History: Degenerative disc disease and spine High cholesterol Borderline diabetic Social History: Nicotine/dates since 2012, used to smoke less than 1 pack per day started at 11 Alcohol: none drugs: none - Constitutional Constitutional: Reports sweats - EENT Comment: glaucoma Ears: bilateral: tinnitus, deny: decreased hearing Ears, nose, mouth and throat: Denies headache, Denies sore throat - Breasts Breasts: bilateral: as per HPI - Cardiovascular Cardiovascular: Reports shortness of breath, Denies chest pain - Respiratory Respiratory: Denies cough - Gastrointestinal Gastrointestinal: Denies abdominal pain, Denies diarrhea, Denies nausea, Denies vomiting - Genitourinary (Female) Genitourinary: Denies dysuria, Denies hematuria - Menstruation Menstruation: Reports post hysterectomy - Musculoskeletal Musculoskeletal: Reports as per HPI - Integumentary Integumentary: Denies pruritus, Denies rash - Neurological Neurological: Denies numbness, Denies weakness - Psychiatric Psychiatric: Denies anxiety, Denies depression - Endocrine Endocrine: Denies fatigue, Denies weight change - Hematologic/Lymphatic Comment: baby aspirin daily - Allergic/Immunologic Allergic/Immunologic: Reports as per HPI Past Medical History Past Medical History: Hyperlipidemia Additional Past Medical History / Comment(s): received J&J covid vaccine. Gabapentin for "hot flashes" History of Any Multi-Drug Resistant Organisms: None Reported Past Surgical History: Back Surgery, Hysterectomy, Tonsillectomy Additional Past Surgical History / Comment(s): back surgery x3,has spinal cord stimulator-battery rt hip lead to mid back,partial hyst Past Anesthesia/Blood Transfusion Reactions: No Reported Reaction Past Psychological History: No Psychological Hx Reported Smoking Status: Former smoker Past Alcohol Use History: None Reported Additional Past Alcohol Use History / Comment(s): quit smoking years ago, smoked approx 30 yrs <1ppd Past Drug Use History: None Reported - Past Family History Mother Family Medical History: Cancer Additional Family Medical History / Comment(s): brain CA Father Family Medical History: Cancer Additional Family Medical History / Comment(s): lung CA Medications and Allergies Home Medications Medication Instructions Recorded Confirmed Type Aspirin 81 mg PO DAILY 11/25/20 01/20/22 History Calcium Carbonate [Calcium] 600 mg PO DAILY 11/25/20 01/20/22 History Gabapentin 600 mg PO BID 11/25/20 01/20/22 History [place]-3 Fatty Acids/Fish Oil [Fish 1 each PO DAILY 11/25/20 01/20/22 History Oil 1,000 mg Softgel] Pravastatin Sodium [Pravachol] 20 mg PO DAILY 11/25/20 01/20/22 History Vitamin B Complex 1 each PO DAILY 12/13/20 01/20/22 History Allergies Allergy/AdvReac Type Severity Reaction Status Date / Time neosporin eye drops AdvReac Swelling Uncoded 01/20/22 11:36 Objective - Vital Signs Vital signs: Intake & Output 05/31/23 06/01/23 06/01/23 18:59 06:59 18:59 Weight 64.864 kg - Constitutional General appearance: Present: cooperative - EENT Eyes: Present: EOMI ENT: Present: hearing grossly normal - Neck Neck: Present: normal ROM - Respiratory Respiratory: bilateral: CTA - Cardiovascular Heart sounds: normal: S1, S2 - Integumentary Integumentary: Present: normal turgor - Musculoskeletal Musculoskeletal: Present: gait normal - Psychiatric Psychiatric: Present: A&O x's 3, appropriate affect, intact judgment & insight - Additional findings Additional findings: Breast Exam: BRA: 38C inspection: Breast postoperative changes, right breast larger than left breast; asymmetry of the nipple areolar complex with a grade 3 ptosis on the right and a grade 1 ptosis on the left Palpation: Right breast: Multi-positional exam fibrocystic changes no dominant masses or nodules of concern Right axilla: No adenopathy of concern Left breast: postsurgical and radiation changes no dominant masses or nodules of concern in the left breast Left axilla: No adenopathy of concern Assessment and Plan Assessment: Impression: Degenerative disc disease and spine High cholesterol Borderline diabetic left breast cancer stage II, no evidence of recurrence bilateral mammogram 01-17-23 BIRAD 3; repeat in 3 months left breast mammogram; done 04-24-23 BIRAD 2 Plan: continue arimidex alendronate 1 time a week Bilateral mamm in 9 months follow up medical oncology follow up radiation oncology right breast reduction mammoplasty secondary to asymmetry related to cancer surgery on the left CC: Dr. Marcum Risks and benefits of the procedure discussed with the patient. Risks include but are not limited to bleeding, infection, reaction to the anesthetic. There is a risk of decreased sensation to the nipple areolar complex or necrosis of the nipple areolar complex. She understands this and wishes to proceed. In addition we have talked about the option of seeing a plastic surgeon and she has declined. Additional CC's: Katie Trujillo
== END ==
LOC: WWCWWP 12:02
PROVIDERS: ATTEND Surgery
DX: E78.00 Pure hypercholesterolemia, unspecified (principal); R73.03 Prediabetes; N64.89 Other specified disorders of breast; M51.9 Unspecified thoracic, thoracolumbar and lumbosacral intervertebral disc disorder; Z87.891 Personal history of nicotine dependence; Z92.3 Personal history of irradiation; Z85.3 Personal history of malignant neoplasm of breast; Z88.0 Allergy status to penicillin; Z88.5 Allergy status to narcotic agent; Z88.8 Allergy status to other drugs, medicaments and biological substances; Z79.82 Long term (current) use of aspirin

== ENCOUNTER → 2023-06-11 | Outpatient (CLI) | payer MEDICARE, OTHER ==
--- NOTE | 2023-06-11 13:12 | XR ---
EXAMINATION TYPE: XR chest 2V DATE OF EXAM: 06/11/2023 COMPARISON: NONE TECHNIQUE: PA and lateral views submitted. HISTORY: Pre surgical FINDINGS: The lungs are clear and there is no pneumothorax, pleural effusion, or focal pneumonia. Heart size normal and no overt failure. Osseous structures demonstrate hypertrophic and degenerative changes of the spine. Stimulator leads stable. Post surgical change left breast. Biapical pleural thickening. C orrelate for COPD. IMPRESSION: 1. No acute process.
== END | disposition home or self-care (01) ==
LOC: LABPAT 11:54
PROVIDERS: ATTEND Surgery
DX: Z01.818 Encounter for other preprocedural examination (principal)
CPT/HCPCS: 71046

== ENCOUNTER 2023-06-12 07:04 | Day surgery (SDC) | payer MEDICARE, OTHER ==
[2023-06-11 09:49] VITALS: BMI 23.9
[~2023-06-12 07:04] MED LIST changes: -DEXAMETHASONE SOD PHOSPHATE 4 MG/ML 1 ML VIAL IV ONE; -HYDROmorphone (PF) 1 MG/ML ONE; -HYDROmorphone 0.5 MG/0.5 ML SYRINGE IVP PRN; -LACTATED RINGERS 1,000 ML IV ONE; -LIDOCAINE 0.5% (PF) 5 MG/ML (50 ML SDV) SQ ONE; -LIDOCAINE 1% (10MG/ML) FOR IV START INTRADERMA PRN; -LIDOCAINE 1% INJ 10MG/ML (5 ML VIAL-PF) SQ ONE; -LIDOCAINE 2% INJ 20 MG/ML (2 ML VIAL) ONE; -MIDAZOLAM 2 MG/2 ML VIAL IV PRN; -MIDAZOLAM 2 MG/2 ML VIAL ONE; -ONDANSETRON 4 MG/2 ML VIAL IVP ONE; -ONDANSETRON 4 MG/2 ML VIAL ONE; -PROPOFOL 10 MG/ML 20 ML VIAL IV ONE; -Pre Op ABX Message 1 EACH MISC MISCELLANE ONE; -ROCURONIUM 10 MG/ML (5 ML VIAL) IV ONE; -SODIUM CHLORIDE 0.9% 50 ML with ceFAZolin 2 GM IV ONE; -SUCCINYLCHOLINE CHLORIDE 200 MG/10 ML VIAL IV ONE; -fentaNYL (PF) 50 MCG/ML 2 ML AMP ONE
[2023-06-12] MEDS ORDERED: droPERidol 5 MG/2 ML VIAL IVP ONE (07:21)
[2023-06-12] MEDS ORDERED: ONDANSETRON 4 MG/2 ML VIAL IVP ONE (07:21)
[2023-06-12] MEDS ORDERED: LIDOCAINE 1% (10MG/ML) FOR IV START INTRADERMA PRN (07:21)
[2023-06-12] MEDS ORDERED: DEXAMETHASONE SOD PHOSPHATE 4 MG/ML 1 ML VIAL IV ONE (07:21)
[2023-06-12] MEDS ORDERED: LACTATED RINGERS 1,000 ML IV SCH (07:21)
[2023-06-12] MEDS ORDERED: FAMOTIDINE 20 MG/2 ML VIAL IVP ONE (08:00)
[2023-06-12 08:27] LABS: HCT 38.8 % (34.0-46.0); HGB 12.9 gm/dL (11.4-16.0); MCH 29.2 pg (25.0-35.0); MCHC 33.3 g/dL (31.0-37.0); MCV 87.7 fL (80.0-100.0); Mean Platelet Volume 7.4; Platelet Count 246 k/uL (150-450); RBC 4.43 m/uL (3.80-5.40); RDW 12.6 % (11.5-15.5); WBC 6.4 k/uL (3.8-10.6)
[2023-06-12] MEDS ORDERED: LIDOCAINE 1% INJ 10MG/ML (20 ML MDV) ONE (08:30)
[2023-06-12] MEDS ORDERED: PROPOFOL 10 MG/ML 20 ML VIAL IV ONE (08:30)
[2023-06-12] MEDS ORDERED: fentaNYL (PF) 50 MCG/ML 2 ML AMP ONE (08:30)
[2023-06-12] MEDS ORDERED: SUCCINYLCHOLINE CHLORIDE 200 MG/10 ML VIAL IV ONE (08:30)
[2023-06-12] MEDS ORDERED: DEXAMETHASONE SOD PHOSPHATE 10 MG/ML 1 ML VIAL ONE (08:30)
[2023-06-12] MEDS ORDERED: MIDAZOLAM 2 MG/2 ML VIAL ONE (08:30)
[2023-06-12] MEDS ORDERED: PHENYLEPHRINE 10 MG/ML VIAL ONE (08:30)
[2023-06-12 08:44] LABS: ALT 20 U/L (4-34); AST 33 U/L (14-36); African American GFR (CKD) >90 (>60 ml/min/1.73 sqM); Albumin 3.9 g/dL (3.5-5.0); Alkaline Phosphatase 66 U/L (38-126); Anion Gap 12 mmol/L; Blood Urea Nitrogen 9 mg/dL (7-17); Calcium 9.2 mg/dL (8.4-10.2); Carbon Dioxide 20 mmol/L (22-30); Chloride 109 mmol/L (98-107); Glucose 115 mg/dL (74-99); Non-African American GFR(CKD) >90 (>60 ml/min/1.73 sqM); Potassium 4.1 mmol/L (3.5-5.1); Sodium 141 mmol/L (137-145); Total Bilirubin 0.6 mg/dL (0.2-1.3); Total Protein 6.8 g/dL (6.3-8.2)
[2023-06-12] MEDS ORDERED: LACTATED RINGERS 1,000 ML IV ONE (10:05)
--- NOTE | 2023-06-12 11:10 | P.OP ---
Date of Procedure: 06/12/23 Preoperative Diagnosis: asymmetry of the breast secondary to surgery for left breast cancer Postoperative Diagnosis: Same Procedure(s) Performed: Right breast reduction mammoplasty via Porrsa pattern incision Anesthesia: [place] Surgeon: Alecia Bonilla Estimated Blood Loss (ml): 5 IV fluids (ml): 1,000 Pathology: other (Breast tissue) Condition: stable Disposition: same day Indications for Procedure: Asymmetry with the right breast larger than the left breast secondary to prior left breast surgery and radiation for cancer Operative Findings: Fibrofatty breast tissue Description of Procedure: The patient was seen and evaluated in the preoperative area and markings were placed for porras pattern reduction right breast mammoplasty. An inferior pedicle approach was used. The patient was brought to the operative suite. Following induction of anesthesia both breasts were prepped and draped in a sterile fashion. Using a Porras pattern markings inferior pedicle skin was de- epithelialized. This was approximately 8 cm wide. This was de-epithelialized around the area of the nipple areolar complex. 38 cookie cutter was used to measure the size of the nipple areolar complex on the left side and this was matched to that on the right side. Following this using the skin markings resection of the skin and breast tissue was performed laterally and in a horseshoe incision around the inferior pedicle superiorly. This was dissected down to the pectoralis muscle. Following this the wound was well irrigated. Surgicel and pelvis on was placed. A #10 drain was placed laterally. The inferior pedicle was tacked to the anterior abdominal wall. Following this the flaps were brought together and secured using interrupted sutures. The subcutaneous tissues were closed using a running 3-0 Vicryl suture. The subcuticular skin was closed using 4-0 Monocryl. The area of the nipple areolar complex was marked using a 38 cookie cutter. The skin and subcutaneous tissue was removed. The nipple areolar complex was matured. The deep tissues were clear brought together using interrupted 3-0 Vicryl suture. This was followed by running 3-0 subcutaneous Vicryl suture. This was followed by a 4-0 Monocryl subcuticular suture. The drain was secured using a 3-0 nylon suture. All instrument and sponge counts were correct at the end of the case. The patient tolerated procedure in stable condition.
[2023-06-12 11:31] VITALS: RESP 16; TEMP 97.6
[2023-06-12] MEDS: fentaNYL (PF) 50 MCG/ML 2 ML AMP IV PRN ×2 (11:47→11:56)
[2023-06-12 14:26] VITALS: BP 166/81; PULSE 79
== END 2023-06-12 14:15 | disposition home or self-care (01) ==
LOC: OR 07:04
PROVIDERS: ATTEND Surgery
DX: N64.89 Other specified disorders of breast (principal); E78.5 Hyperlipidemia, unspecified; Z98.890 Other specified postprocedural states; Z90.710 Acquired absence of both cervix and uterus; Z87.891 Personal history of nicotine dependence; Z79.82 Long term (current) use of aspirin; Z79.899 Other long term (current) drug therapy; Z85.3 Personal history of malignant neoplasm of breast; Z88.8 Allergy status to other drugs, medicaments and biological substances; Z80.3 Family history of malignant neoplasm of breast; Z80.8 Family history of malignant neoplasm of other organs or systems
CPT/HCPCS: 19318; 88305; 80053; 85027; J2250; J0330; J1100 ×2; J0690; J2405; J2001; J3010; J3490; J2704; J1790; J1644; J2371

== ENCOUNTER → 2023-06-20 | Outpatient (CLI) | payer MEDICARE, OTHER ==
[2023-06-20 11:14] VITALS: BP 163/83; PULSE 100; RESP 17; TEMP 98.1
--- NOTE | 2023-06-20 11:16 | P.PN ---
Subjective Progress Note Date: 06/20/23 Principal diagnosis: post op right breast reduction mamoplasty Eunice is a 63 year old white female status post right breast reduction mammoplasty and [id number]. Postoperatively she is doing well. Pathology from the right breast was benign. Her YANELI drain output is minimal. Examination: Incision clean and dry, some mild necrosis possibly of the periareolar region superiorly. YANELI output minimal, mild erythema at incision site most likely inflammatory and not infectious in nature Plan: Remove YANELI drain Patient will be given prophylactically Keflex and Diflucan Objective - Vital Signs Vital signs: Vital Signs Temp 98.1 F 06/20/23 10:57 Pulse 100 06/20/23 10:57 Resp 17 06/20/23 10:57 BP 163/83 06/20/23 10:57 Pulse Ox 98 06/20/23 10:57 FiO2 Intake & Output 06/19/23 06/20/23 06/20/23 18:59 06:59 18:59 Weight 63.503 kg
== END ==
LOC: WWCWWP 10:51
PROVIDERS: ATTEND Surgery
DX: T81.89XA Other complications of procedures, not elsewhere classified, initial encounter (principal); Y69 Unspecified misadventure during surgical and medical care; Z88.0 Allergy status to penicillin; Z88.5 Allergy status to narcotic agent; Z88.8 Allergy status to other drugs, medicaments and biological substances; Z48.03 Encounter for change or removal of drains

== ENCOUNTER → 2023-07-05 | Outpatient (CLI) | payer MEDICARE, OTHER ==
--- NOTE | 2023-07-05 08:55 | P.PN ---
Progress Note - Text Progress Note Date: 07/05/23 post op right breast reduction mammoplasty Eunice is a 63 year old white female status post right breast reduction mammoplasty on [id number]. Postoperatively she is doing well. Pathology from the right breast was benign. Her YANELI drain removed on her last visit. Examination: Incision clean and dry, Patient will be given prophylactically Keflex and Diflucan last visit no evidence of any erythema or infection at this time Impression: Patient doing well at this time Plan: Follow-up 6 months for examination Bilateral mammogram & 2023 with exam at that time follow up with her in radiation oncology CC: Zamzam Trujillo
[2023-07-05 09:28] VITALS: BP 126/79; PULSE 71; RESP 17; TEMP 98.3
== END ==
LOC: WWCWWP 08:20
PROVIDERS: ATTEND Surgery
DX: D24.1 Benign neoplasm of right breast (principal); Z98.86 Personal history of breast implant removal; Z88.0 Allergy status to penicillin; Z88.5 Allergy status to narcotic agent; Z88.8 Allergy status to other drugs, medicaments and biological substances

== ENCOUNTER → 2023-07-25 | Outpatient (CLI) | payer MEDICARE, OTHER ==
[2023-07-25 13:42] VITALS: BP 129/78; PULSE 76; RESP 17; TEMP 97.8
--- NOTE | 2023-07-25 13:51 | P.PN ---
Subjective Progress Note Date: 07/25/23 [id number]-Her2-G3. Stage II left breast; 202104-25-23 left breast stage IIA invasive ductal carcinoma, diagnosed 2021 Eunice is 61-year-old white female seen in consultation for Dr. Marcum regarding an invasive ductal carcinoma of the left breast. She underwent a bilateral screening mammogram on as well as an ultrasound of the left breast at that time. Nothing of concern was noted in the right breast. In the left breast a 2.7 cm lesion was noted near the 12 o'clock position. Additio stacy enlarged axillary lymph node was identified and biopsied this was recommended as well. She underwent core biopsy of both of these areas on . Pathology revealed an invasive ductal carcinoma of the left breast, lymph node results were benign. The lesion is [id number]-Her2-G3. StageIIA. The patient had been able to feel the spot for about two weeks. She gets mammograms regularly, however with COVID she was 2 years out. She was not complaining of any pain. He has had a right breast core lumpectomy approximately 20 years ago and told she had a precancerous lesion. She did not have any radiation therapy or chemotherapy. She is not complaining of any recent trauma or infection in the breast. She has never had a left breast biopsy. She underwent neoadjuvant chemotherapy wtih AC-T (oncotype 69) followed by lumpectomy and SNB on 07-18-22. This was T0 N0 disease on pathology. She completed radiation therapy in August 2022. She is presently on anastrozole and has had no side effects. She is also on Fosamax. 07-18-22 left breast lumpectomy and SNB; no residual cancer, and nodes (-) completed radiation of the left breast on 09-15-22 bilateral mammogram 01-17-23 BIRAD 3 diagnostic mammogram of left breast in 3 months, she is not complaining of any new lumps masses or nodules in either breast repeat left breast mammogram on 04-24-23 BIRAD 2; bilateral mammogram in 9 months Patient is not complaining of any new lumps masses or nodules of concern in either breast. Patient is no longer taking gabapentin but she is taking vatoza for hot flashes it is non-hormonal She has asymmetry of the breast with the right breast being larger than the left breast. This makes it difficult for her to find clothes the fit properly 07-25-23 RIGHT breast reduction mammoplasty on 06-12-23. She is complaining of an opening at the trifurction of the incision about three weeks ago. It is uncomfortable with the bandage. Caffeine: 1 pot/day in the past, now decreased to 3 mugs/day nicotine: vapes since 2012, used to smoke < 1PPD started at 11; stopped vaping approximately 2 month ago hormones: BCP: 3 years partial hysterectomy at 21; estrogen 10 years; Family History: mother: brain cancer father: lung maternal grandfather: lung aunt maternal: kidney cancer maternal uncle: throat cancer Hormonal History: menarche: 12 , breast fed: no, age at first : 17 menopause: hysterectomy at for bleeding; left ovaries Surgical History: 3 spinal surgeries Neural modulator Hysterectomy left breast lumpectomy and SNB Medical History: Degenerative disc disease and spine High cholesterol Borderline diabetic Social History: Nicotine/dates since 2012, used to smoke less than 1 pack per day started at 11 Alcohol: none drugs: none - Constitutional Constitutional: Reports sweats - EENT Comment: glaucoma Ears: bilateral: tinnitus, deny: decreased hearing Ears, nose, mouth and throat: Denies headache, Denies sore throat - Breasts Breasts: bilateral: as per HPI - Cardiovascular Cardiovascular: Reports shortness of breath, Denies chest pain - Respiratory Respiratory: Denies cough - Gastrointestinal Gastrointestinal: Denies abdominal pain, Denies diarrhea, Denies nausea, Denies vomiting - Genitourinary (Female) Genitourinary: Denies dysuria, Denies hematuria - Menstruation Menstruation: Reports post hysterectomy - Musculoskeletal Musculoskeletal: Reports as per HPI - Integumentary Integumentary: Denies pruritus, Denies rash - Neurological Neurological: Denies numbness, Denies weakness - Psychiatric Psychiatric: Denies anxiety, Denies depression - Endocrine Endocrine: Denies fatigue, Denies weight change - Hematologic/Lymphatic Comment: baby aspirin daily - Allergic/Immunologic Allergic/Immunologic: Reports as per HPI Past Medical History Past Medical History: Hyperlipidemia Additional Past Medical History / Comment(s): received J&J covid vaccine. Gabapentin for "hot flashes" History of Any Multi-Drug Resistant Organisms: None Reported Past Surgical History: Back Surgery, Hysterectomy, Tonsillectomy Additional Past Surgical History / Comment(s): back surgery x3,has spinal cord stimulator-battery rt hip lead to mid back,partial hyst Past Anesthesia/Blood Transfusion Reactions: No Reported Reaction Past Psychological History: No Psychological Hx Reported Smoking Status: Former smoker Past Alcohol Use History: None Reported Additional Past Alcohol Use History / Comment(s): quit smoking years ago, smoked approx 30 yrs <1ppd Past Drug Use History: None Reported - Past Family History Mother Family Medical History: Cancer Additional Family Medical History / Comment(s): brain CA Father Family Medical History: Cancer Additional Family Medical History / Comment(s): lung CA Medications and Allergies Home Medications Medication Instructions Recorded Confirmed Type Aspirin 81 mg PO DAILY 11/25/20 01/20/22 History Calcium Carbonate [Calcium] 600 mg PO DAILY 11/25/20 01/20/22 History Gabapentin 600 mg PO BID 11/25/20 01/20/22 History [place]-3 Fatty Acids/Fish Oil [Fish 1 each PO DAILY 11/25/20 01/20/22 History Oil 1,000 mg Softgel] Pravastatin Sodium [Pravachol] 20 mg PO DAILY 11/25/20 01/20/22 History Vitamin B Complex 1 each PO DAILY 12/13/20 01/20/22 History Allergies Allergy/AdvReac Type Severity Reaction Status Date / Time neosporin eye drops AdvReac Swelling Uncoded 01/20/22 11:36 Objective - Vital Signs Vital signs: Vital Signs Temp 97.8 F 07/25/23 13:39 Pulse 76 07/25/23 13:39 Resp 17 07/25/23 13:39 BP 129/78 07/25/23 13:39 Pulse Ox 96 07/25/23 13:39 FiO2 Intake & Output 07/24/23 07/25/23 07/25/23 18:59 06:59 18:59 Weight 64.864 kg - Constitutional General appearance: Present: cooperative - EENT Eyes: Present: EOMI ENT: Present: hearing grossly normal - Neck Neck: Present: normal ROM - Respiratory Respiratory: bilateral: CTA - Cardiovascular Rhythm: regular Heart sounds: normal: S1, S2 - Integumentary Integumentary Comment(s): Incision right breast clean and dry however the trifurcation area at the lower aspect of the breast has a 1 x 1 cm area which is and granulating in; it is superficial - Psychiatric Psychiatric: Present: A&O x's 3, appropriate affect, intact judgment & insight Assessment and Plan Assessment: Impression: Superficial area of granulation tissue exposed at the trifurcation area of the right breast. Plan: Reinforcement of the incisions at the trifurcation area Patient to follow-up in 2 weeks
== END ==
LOC: WWCWWP 13:25
PROVIDERS: ATTEND Surgery
DX: C50.912 Malignant neoplasm of unspecified site of left female breast (principal); L92.9 Granulomatous disorder of the skin and subcutaneous tissue, unspecified; N64.89 Other specified disorders of breast; E11.9 Type 2 diabetes mellitus without complications; E78.00 Pure hypercholesterolemia, unspecified; M51.9 Unspecified thoracic, thoracolumbar and lumbosacral intervertebral disc disorder; Z17.0 Estrogen receptor positive status [ER+]; Z86.16 Personal history of COVID-19; Z87.891 Personal history of nicotine dependence; Z92.3 Personal history of irradiation; Z79.82 Long term (current) use of aspirin; Z88.8 Allergy status to other drugs, medicaments and biological substances; Z88.5 Allergy status to narcotic agent; Z88.0 Allergy status to penicillin

== ENCOUNTER → 2023-08-03 | Outpatient (CLI) | payer MEDICARE, OTHER ==
[2023-08-03 13:11] VITALS: BP 155/87; PULSE 84; RESP 17; TEMP 98.3
--- NOTE | 2023-08-03 13:23 | P.PN ---
Progress Note - Text Progress Note Date: 08/03/23 07/25/23 [id number]-G3. Stage II left breast; 2021 Eunice is status post right breast reduction mammoplasty on 06-12-2023. Patient on 07-25-2023 with a complaint of an opening at the trifurcation of the lower aspect of the incision. This was reinforced on that visit. The patient presents today for evaluation of the incision. Patient states the area at the trifurcation has again opened up, she comes in for evaluation. Incision right breast clean and dry however the trifurcation area at the lower aspect of the breast has a 1 x 2cm area which is and granulating in; it is superficial Lungs clear Heart: Regular rate and rhythm Assessment and Plan Assessment: Impression: Superficial area of granulation tissue exposed at the trifurcation area of the right breast. Plan: Reinforcement of the incisions at the trifurcation area Patient to follow-up in a week Following informed consent the area in the right breast at the trifurcation was prepped using Betadine. The prior sutures were removed. The area was reinforced with 3-0 nylon suture. There is complete closure of the area with the reinforcement of the sutures. The patient is going to wear her bra at all times The patient is going to follow-up next week.
== END ==
LOC: WWCWWP 12:32
PROVIDERS: ATTEND Surgery
DX: L92.8 Other granulomatous disorders of the skin and subcutaneous tissue (principal); Z98.890 Other specified postprocedural states; Z88.0 Allergy status to penicillin; Z88.5 Allergy status to narcotic agent; Z88.8 Allergy status to other drugs, medicaments and biological substances; Z79.82 Long term (current) use of aspirin

== ENCOUNTER → 2023-08-07 | Outpatient (CLI) | payer MEDICARE, OTHER ==
[2023-08-07 08:05] VITALS: BP 148/87; PULSE 82; RESP 15; TEMP 97.9
--- NOTE | 2023-08-07 08:25 | P.PN ---
Progress Note - Text Progress Note Date: 08/07/23 07/25/23 [id number]-G3. Stage II left breast; 2021 Eunice is status post right breast reduction mammoplasty on 06-12-2023. Patient on 07-25-2023 with a complaint of an opening at the trifurcation of the lower aspect of the incision. This was reinforced on that visit. The patient present on 08-03-23 for evaluation of the incision. The trifurcation inferiorly had expanded and this was again reinforced. Expansion was approximately 1 x 2 cm in size. The sutures have extruded area of concern remains approximately 1 x 2 cm in size. Patient: Granulation tissue at the trifurcation of the lower aspect of the incision 1 x 2 cm in size Assessment and Plan Assessment: Impression: Superficial area of granulation tissue exposed at the trifurcation area of the right breast. Plan: Sutures removed Steri-Strips applied to decrease the tension at the medial and lateral aspect of the incision parachol placed over the wound and moistened with saline Follow up Sunday08-10-23
== END ==
LOC: WWCWWP 07:37
PROVIDERS: ATTEND Surgery
DX: L92.8 Other granulomatous disorders of the skin and subcutaneous tissue (principal); C50.911 Malignant neoplasm of unspecified site of right female breast; Z17.0 Estrogen receptor positive status [ER+]; Z98.890 Other specified postprocedural states; Z88.0 Allergy status to penicillin; Z88.5 Allergy status to narcotic agent; Z88.8 Allergy status to other drugs, medicaments and biological substances; Z79.82 Long term (current) use of aspirin

== ENCOUNTER → 2023-08-10 | Outpatient (CLI) | payer MEDICARE, OTHER ==
--- NOTE | 2023-08-10 08:28 | P.PN ---
Progress Note - Text Progress Note Date: 08/10/23 07/25/23 [id number]. Stage II left breast; 2021 Eunice is status post right breast reduction mammoplasty on 06-12-2023. Patient on 07-25-2023 with a complaint of an opening at the trifurcation of the lower aspect of the incision. This was reinforced on that visit. The patient present on 08-03-23 for evaluation of the incision. The trifurcation inferiorly had expanded and this was again reinforced. Expansion was approximately 1 x 2 cm in size. The sutures have extruded area of concern remains approximately 1 x 2 cm in size. On her last visit sutures were removed and Steri-Strips were applied. Has had no fever or chills. She has had no drainage on the dressing. Patient: Granulation tissue at the trifurcation of the lower aspect of the incision 1 x 2 cm in size, however less deep Assessment and Plan Assessment: Impression: Superficial area of granulation tissue exposed at the trifurcation area of the right breast. Plan: Steri-Strips applied to decrease the tension at the medial and lateral aspect of the incision replaced parachol placed over the wound and moistened with saline Follow up next week
[2023-08-10 08:29] VITALS: BP 137/79; PULSE 75; RESP 16; TEMP 98.1
== END ==
LOC: WWCWWP 08:12
PROVIDERS: ATTEND Surgery
DX: C50.912 Malignant neoplasm of unspecified site of left female breast (principal); L92.8 Other granulomatous disorders of the skin and subcutaneous tissue; T85.42XA Displacement of breast prosthesis and implant, initial encounter; Z17.0 Estrogen receptor positive status [ER+]; Z98.890 Other specified postprocedural states; Z88.0 Allergy status to penicillin; Z88.5 Allergy status to narcotic agent; Z88.8 Allergy status to other drugs, medicaments and biological substances; Z79.82 Long term (current) use of aspirin; Z98.82 Breast implant status

== ENCOUNTER → 2023-08-14 | Outpatient (CLI) | payer MEDICARE, OTHER ==
--- NOTE | 2023-08-14 08:26 | P.PN ---
Progress Note - Text Progress Note Date: 08/14/23 [id number]-Her2-G3. Stage II left breast; 2021 Eunice is status post right breast reduction mammoplasty on 06-12-2023. Patient on 07-25-2023 with a complaint of an opening at the trifurcation of the lower aspect of the incision. This was reinforced on that visit. The patient present on 08-03-23 for evaluation of the incision. The trifurcation inferiorly had expanded and this was reinforced. Expansion was approximately 1 x 2 cm in size. The sutures had extruded from the area of concern these were removed and Steri- Strips were placed. The opening remained approximately 1 x 2 cm in size. Has had no fever or chills. She has minimal drainage on the dressing. Patient: Granulation tissue at the trifurcation of the lower aspect of the incision 1 x 2 cm in size, however less deep; the edges are less than 1 cm in size at this time Assessment and Plan Assessment: Impression: Superficial area of granulation tissue exposed at the trifurcation area of the right breast. Plan: Old Steri-Strips removed, and new ones applied to decrease the tension at the medial and lateral aspect of the incision parachol placed over the wound and moistened with saline Follow up two days
[2023-08-14 10:04] VITALS: BP 168/77; PULSE 84; RESP 15; TEMP 97.8
== END ==
LOC: WWCWWP 08:06
PROVIDERS: ATTEND Surgery
DX: C50.912 Malignant neoplasm of unspecified site of left female breast (principal); L92.8 Other granulomatous disorders of the skin and subcutaneous tissue; Z17.0 Estrogen receptor positive status [ER+]; Z98.890 Other specified postprocedural states; Z88.0 Allergy status to penicillin; Z88.5 Allergy status to narcotic agent; Z88.8 Allergy status to other drugs, medicaments and biological substances; Z79.82 Long term (current) use of aspirin

== ENCOUNTER → 2023-08-16 | Outpatient (CLI) | payer MEDICARE, OTHER ==
[2023-08-16 08:50] VITALS: BP 132/82; PULSE 81; RESP 15; TEMP 98.1
--- NOTE | 2023-08-16 09:19 | P.PN ---
Progress Note - Text Progress Note Date: 08/16/23 [id number]-Her2-G3. Stage II left breast; 2021 Eunice is status post right breast reduction mammoplasty on 06-12-2023. Patient on 07-25-2023 with a complaint of an opening at the trifurcation of the lower aspect of the incision. This was reinforced on that visit. The patient present on 08-03-23 for evaluation of the incision. The trifurcation inferiorly had expanded and this was reinforced. Expansion was approximately 1 x 2 cm in size. The sutures had extruded from the area of concern these were removed and Steri- Strips were placed. The opening remained approximately 1 x 2 cm in size. Has had no fever or chills. She has minimal drainage on the dressing. The dressing was changed on 08-14-2023. She returns today for repeat evaluation. Patient: Granulation tissue at the trifurcation of the lower aspect of the incision 1 x 1 cm in size, however less deep; Assessment and Plan Assessment: Impression: Superficial area of granulation tissue exposed at the trifurcation area of the right breast. Plan: Old Steri-Strips removed, and new ones applied to decrease the tension at the medial and lateral aspect of the incision parachol placed over the wound and moistened with saline Patient is going to shower at this time She will follow-up next week She will call sooner any questions or concerns
== END ==
LOC: WWCWWP 08:04
PROVIDERS: ATTEND Surgery
DX: C50.912 Malignant neoplasm of unspecified site of left female breast (principal); L92.8 Other granulomatous disorders of the skin and subcutaneous tissue; T85.42XA Displacement of breast prosthesis and implant, initial encounter; Z98.890 Other specified postprocedural states; Z98.82 Breast implant status; Z17.0 Estrogen receptor positive status [ER+]; Z88.0 Allergy status to penicillin; Z88.5 Allergy status to narcotic agent; Z88.8 Allergy status to other drugs, medicaments and biological substances; Z79.82 Long term (current) use of aspirin

== ENCOUNTER → 2023-08-21 | Outpatient (CLI) | payer MEDICARE, OTHER ==
--- NOTE | 2023-08-21 08:11 | P.PN ---
Progress Note - Text Progress Note Date: 08/21/23 08-21-23 [id number]-Her2-G3. Stage II left breast; 2021 Eunice is status post right breast reduction mammoplasty on 06-12-2023. Patient on 07-25-2023 with a complaint of an opening at the trifurcation of the lower aspect of the incision. This was reinforced on that visit. The patient present on 08-03-23 for evaluation of the incision. The trifurcation inferiorly had expanded and this was reinforced. Expansion was approximately 1 x 2 cm in size. The sutures had extruded from the area of concern these were removed and Steri- Strips were placed. The opening remained approximately 1 x 2 cm in size. Has had no fever or chills. She has minimal drainage on the dressing. The dressing was changed on 08-14-2023. She returns today for repeat evaluation. Last seen on 08-16-2023. At that time the area of granulation tissue was approximately 1 x 1 cm in size. Old Steri-Strips were removed and new Steri- Strips were applied to decrease the tension at the medial and lateral aspect of the incision. On today's examination the patient has been showering and has been applying Tegaderm to the area of the wound. The Steri-Strips were removed and there is excoriation of the skin underneath the Steri-Strips. The tissue has granulated almost totally to the surface of the incision but the area of excoriated skin is approximately 4 cm x 1 cm at this time. Examination: Patient at the trifurcation of the incision reveals an area approximately 4 cm x 1 cm of excoriated skin. There is almost complete granulation up to the surface of the skin. In the more lateral aspect of the incision there is approximately an 8 mm area of opening which was not present prior. Assessment and Plan Assessment: Impression: Superficial area of granulation tissue exposed at the trifurcation area of the right breast, new area of wound approximately 8 mm in size at the lateral aspect of the excoriated tissue which is approximately 3 mm deep. Plan: Old Steri-Strips removed, new ones applied parachol placed over the wound and moistened with saline Patient is going to shower at this time She will follow-up next week She will call sooner any questions or concerns
[2023-08-21 08:33] VITALS: BP 115/74; PULSE 92; RESP 15; TEMP 98.1
== END ==
LOC: WWCWWP 08:01
PROVIDERS: ATTEND Surgery
DX: L92.8 Other granulomatous disorders of the skin and subcutaneous tissue (principal); C50.912 Malignant neoplasm of unspecified site of left female breast; T14.8XXA Other injury of unspecified body region, initial encounter; L08.89 Other specified local infections of the skin and subcutaneous tissue; Z98.890 Other specified postprocedural states; Z17.0 Estrogen receptor positive status [ER+]; Z88.0 Allergy status to penicillin; Z88.5 Allergy status to narcotic agent; Z88.8 Allergy status to other drugs, medicaments and biological substances; Z79.82 Long term (current) use of aspirin

== ENCOUNTER → 2023-08-23 | Outpatient (CLI) | payer MEDICARE, OTHER ==
--- NOTE | 2023-08-23 09:05 | P.PN ---
Progress Note - Text Progress Note Date: 08/23/23 08-23-23 [id number]-Her2-G3. Stage II left breast; 2021 Eunice is status post right breast reduction mammoplasty on 06-12-2023. Patient on 07-25-2023 with a complaint of an opening at the trifurcation of the lower aspect of the incision. This was reinforced on that visit. The patient present on 08-03-23 for evaluation of the incision. The trifurcation inferiorly had expanded and this was reinforced. Expansion was approximately 1 x 2 cm in size. The sutures had extruded from the area of concern these were removed and Steri- Strips were placed. The opening remained approximately 1 x 2 cm in size. Has had no fever or chills. She has minimal drainage on the dressing. The dressing was changed on 08-14-2023. She returns today for repeat evaluation. Last seen on 08-16-2023. At that time the area of granulation tissue was approximately 1 x 1 cm in size. Old Steri-Strips were removed and new Steri- Strips were applied to decrease the tension at the medial and lateral aspect of the incision. On today's examination the patient has been showering and has been applying Tegaderm to the area of the wound. The Steri-Strips were removed and there is excoriation of the skin underneath the Steri-Strips. The tissue has granulated almost totally to the surface of the incision but the area of excoriated skin is approximately 4 cm x 1 cm at this time. 08-23-23 On todays the area has granulated completely to the skin. She does not have any open sites. There is Puracol which remains on the surface and this was not removed. Examination: The area of granulation now extends to the surface of the skin. Dressing was changed. The area of excoriation under the Steri-Strips has resolved both medially and laterally. Small 8 mm opening seen laterally appears to have resolved. There is still parachol on the surface which was not removed. Assessment and Plan Assessment: Impression: Superficial area of granulation tissue exposed at the trifurcation area of the right breast, new area of wound approximately 8 mm in size at the lateral aspect of the excoriated tissue which is approximately 3 mm deep has resolved Plan: Dressing changed Patient is going to shower at this time She will follow-up next week She will call sooner any questions or concerns
[2023-08-23 09:33] VITALS: BP 115/74; PULSE 92; RESP 15; TEMP 98.1
== END ==
LOC: WWCWWP 07:50
PROVIDERS: ATTEND Surgery
DX: L92.8 Other granulomatous disorders of the skin and subcutaneous tissue (principal); L08.9 Local infection of the skin and subcutaneous tissue, unspecified; C50.912 Malignant neoplasm of unspecified site of left female breast; T85.42XA Displacement of breast prosthesis and implant, initial encounter; Z98.890 Other specified postprocedural states; Z98.82 Breast implant status; Z17.0 Estrogen receptor positive status [ER+]; Z88.0 Allergy status to penicillin; Z88.5 Allergy status to narcotic agent; Z88.8 Allergy status to other drugs, medicaments and biological substances; Z79.82 Long term (current) use of aspirin

== ENCOUNTER → 2023-08-28 | Outpatient (CLI) | payer MEDICARE, OTHER ==
--- NOTE | 2023-08-28 08:21 | P.PN ---
Progress Note - Text Progress Note Date: 08/28/23 08-28-23 [id number]-Her2-G3. Stage II left breast; 2021 Eunice is status post right breast reduction mammoplasty on 06-12-2023. Patient on 07-25-2023 with a complaint of an opening at the trifurcation of the lower aspect of the incision. This was reinforced on that visit. The patient present on 08-03-23 for evaluation of the incision. The trifurcation inferiorly had expanded and this was reinforced. Expansion was approximately 1 x 2 cm in size. The sutures had extruded from the area of concern these were removed and Steri- Strips were placed. The opening remained approximately 1 x 2 cm in size. Has had no fever or chills. She has minimal drainage on the dressing. The dressing was changed on 08-14-2023. She returns today for repeat evaluation. Patient seen on 08-16-2023. At that time the area of granulation tissue was approximately 1 x 1 cm in size. Old Steri-Strips were removed and new Steri- Strips were applied to decrease the tension at the medial and lateral aspect of the incision. On today's examination the patient has been showering and has been applying Tegaderm to the area of the wound. The Steri-Strips were removed and there is excoriation of the skin underneath the Steri-Strips. The tissue has granulated almost totally to the surface of the incision but the area of excoriated skin is approximately 4 cm x 1 cm at this time. On examination of 08-23-23 the area had granulated completely to the skin. She does not have any open sites. There was Puracol which remained on the surface and this was not removed. The patient was seen on 08-28-2023 and at this time she is doing very well with complete granulation of the area of concern Examination: The area of granulation now extends to the surface of the skin. Dressing was changed. The area of concern has completely granulated at this time. Assessment and Plan Assessment: Impression: Patient doing well at this time Plan: Bilateral mammogram in December with appointment at that time Patient will follow-up sooner any questions or concerns
[2023-08-28 08:38] VITALS: BP 134/78; PULSE 75; RESP 15; TEMP 97.9
== END ==
LOC: WWCWWP 07:52
PROVIDERS: ATTEND Surgery
DX: C50.912 Malignant neoplasm of unspecified site of left female breast (principal); Z17.0 Estrogen receptor positive status [ER+]; Z88.0 Allergy status to penicillin; Z88.5 Allergy status to narcotic agent; Z88.8 Allergy status to other drugs, medicaments and biological substances; Z79.82 Long term (current) use of aspirin

== ENCOUNTER → 2024-01-21 | Outpatient (CLI) | payer OTHER ==
--- NOTE | 2024-01-21 09:57 | MM ---
Reason for Exam: Follow-up at short interval from prior study. Last screening mammogram was performed 12 month(s) ago. Patient History: Menarche at age 12. First Full-Term at age 16. Hysterectomy at age 22. Postmenopausal. Breast cancer, left, age 61. Breast cancer, left, age 61. Estrogen, starting at age 44 for 1 year. 07/18/2022, Lumpectomy on the Left side. 07/18/2022, Benign MG pre op needle loc LT on the left side. 07/18/2022, MG pre op loc each addl LT on the Left side. 01/16/2022, Malignant US biopsy breast VAD LT on the left side. 01/16/2022, Malignant US biopsy breast add'l VAD LT on the left side. Benign Excisional Biopsy on the right side. Benign Excisional Biopsy on the right side. Tissue Density: The breasts are heterogeneously dense, which may obscure small masses. Findings: Analyzed By CAD. Right breast: Disorganized breast tissue likely from prior reduction mammoplasty. No persistent mass is seen with certainty on additional spot compression imaging. Precautionary six-month follow-up is advised. Left breast: Postlumpectomy changes are stable. No evidence for recurrent or residual mass. No suspicious microcalcifications. Overall Assessment: Probably benign, BI-RAD 3 Management: Diagnostic Mammogram of the right breast in 6 months. . Results were given to the patient verbally at the time of exam. Patient should continue monthly self-breast exams. A clinical breast exam by your physician is recommended on an annual basis. This exam should not preclude additional follow-up of suspicious palpable abnormalities. Note on Virgie scores and lifetime risk: 1. A Virgie score greater than 3% is considered moderate risk. If this is the case, consider specialist referral to assess eligibility for a risk reducing agent. 2. If overall lifetime risk for the development of breast cancer is 20% or higher, the patient may qualify for future screening with alternating mammogram and breast MRI. Electronically signed and approved by: Kevin Bashir M.D. Radiologis
== END | disposition home or self-care (01) ==
LOC: RADMAMWWP 09:27
PROVIDERS: ATTEND Surgery
DX: R92.333 Mammographic heterogeneous density, bilateral breasts (principal); Z85.3 Personal history of malignant neoplasm of breast
CPT/HCPCS: 77062; 77066

== ENCOUNTER → 2024-01-24 | Outpatient (CLI) | payer MEDICARE, OTHER ==
[2024-01-24 11:37] VITALS: BP 152/82; PULSE 87; RESP 17; TEMP 98
--- NOTE | 2024-01-24 12:14 | P.PN ---
Subjective Progress Note Date: 01/24/24 Principal diagnosis: abnormal bilateral mammogram 01-21-24 BIRAD 3; repeat right breast in 6 months 06-01-23 Principal diagnosis: [id number]-Her2-G3. Stage II left breast; [id number] left breast stage IIA invasive ductal carcinoma, diagnosed 2021 Eunice is 61-year-old white female seen in consultation for Dr. Marcum regarding an invasive ductal carcinoma of the left breast. She underwent a bilateral screening mammogram on as well as an ultrasound of the left breast at that time. Nothing of concern was noted in the right breast. In the left breast a 2.7 cm lesion was noted near the 12 o'clock position. Additionally enlarged axillary lymph node was identified and biopsied this was recommended as well. She underwent core biopsy of both of these areas on . Pathology revealed an invasive ductal carcinoma of the left breast, lymph node results were benign. The lesion is [id number]-Her2-G3. StageIIA. The patient had been able to feel the spot for about two weeks. She gets mammograms regularly, however with COVID she was 2 years out. She was not complaining of any pain. He has had a right breast core lumpectomy approximately 20 years ago and told she had a precancerous lesion. She did not have any radiation therapy or chemotherapy. She is not complaining of any recent trauma or infection in the breast. She has never had a left breast biopsy. She underwent neoadjuvant chemotherapy wtih AC-T (oncotype 69) followed by lumpectomy and SNB on 07-18-22. This was T0 N0 disease on pathology. She completed radiation therapy in August 2022. She is presently on anastrozole and has had no side effects. She is also on Fosamax. 07-18-22 left breast lumpectomy and SNB; no residual cancer, and nodes (-) completed radiation of the left breast on 09-15-22 bilateral mammogram 01-17-23 BIRAD 3 diagnostic mammogram of left breast in 3 months, she is not complaining of any new lumps masses or nodules in either breast repeat left breast mammogram on 04-24-23 BIRAD 2; bilateral mammogram in 9 months Patient is not complaining of any new lumps masses or nodules of concern in either breast. Patient is no longer taking gabapentin but she is taking vatoza for hot flashes it is non-hormonal 01-24-24 bilateral mammogram personally interpreted BIRAD 3, repeat right mammogram in 6 months note medical oncology reviewed: 01-11-24 She underwent right reduction mammoplasty on 06-12-23, after which she had some breakdown at the trifurcation of the inferior portion of the incision this has completely healed at this time She is not complaining of any new lumps masses or nodules of concern in either breast She was having joint pains on anastrozole and that has been stopped as per Dr. Gardiner she will have a 1 month break and then will have an attempted exemestane Caffeine: 1 pot/day nicotine: vapes since 2012, used to smoke < 1PPD started at 11; stopped the pain approximately 1 month ago hormones: BCP: 3 years partial hysterectomy at 21; estrogen 10 years; Family History: mother: brain cancer father: lung maternal grandfather: lung aunt maternal: kidney cancer maternal uncle: throat cancer Hormonal History: menarche: 12 , breast fed: no, age at first : 17 menopause: hysterectomy at 21 for bleeding; left ovaries Surgical History: 3 spinal surgeries Neural modulator Hysterectomy left breast lumpectomy and SNB right reduction mammoplasty Medical History: Degenerative disc disease and spine High cholesterol Borderline diabetic Social History: Nicotine/dates since 2012, used to smoke less than 1 pack per day started at 11 Alcohol: none drugs: none - Constitutional Constitutional: Reports sweats - EENT Comment: glaucoma Ears: bilateral: tinnitus, deny: decreased hearing Ears, nose, mouth and throat: Denies headache, Denies sore throat - Breasts Breasts: bilateral: as per HPI - Cardiovascular Cardiovascular: Reports shortness of breath, Denies chest pain - Respiratory Respiratory: Denies cough - Gastrointestinal Gastrointestinal: Denies abdominal pain, Denies diarrhea, Denies nausea, Denies vomiting - Genitourinary (Female) Genitourinary: Denies dysuria, Denies hematuria - Menstruation Menstruation: Reports post hysterectomy - Musculoskeletal Musculoskeletal: Reports as per HPI - Integumentary Integumentary: Denies pruritus, Denies rash - Neurological Neurological: Denies numbness, Denies weakness - Psychiatric Psychiatric: Denies anxiety, Denies depression - Endocrine Endocrine: Denies fatigue, Denies weight change - Hematologic/Lymphatic Comment: baby aspirin daily - Allergic/Immunologic Allergic/Immunologic: Reports as per HPI Past Medical History Past Medical History: Hyperlipidemia Additional Past Medical History / Comment(s): received J&J covid vaccine. Gabapentin for "hot flashes" History of Any Multi-Drug Resistant Organisms: None Reported Past Surgical History: Back Surgery, Hysterectomy, Tonsillectomy Additional Past Surgical History / Comment(s): back surgery x3,has spinal cord stimulator-battery rt hip lead to mid back,partial hyst Past Anesthesia/Blood Transfusion Reactions: No Reported Reaction Past Psychological History: No Psychological Hx Reported Smoking Status: Former smoker Past Alcohol Use History: None Reported Additional Past Alcohol Use History / Comment(s): quit smoking years ago, smoked approx 30 yrs <1ppd Past Drug Use History: None Reported - Past Family History Mother Family Medical History: Cancer Additional Family Medical History / Comment(s): brain CA Father Family Medical History: Cancer Additional Family Medical History / Comment(s): lung CA Medications and Allergies Home Medications Medication Instructions Recorded Confirmed Type Aspirin 81 mg PO DAILY 11/25/20 01/20/22 History Calcium Carbonate [Calcium] 600 mg PO DAILY 11/25/20 01/20/22 History Gabapentin 600 mg PO BID 11/25/20 01/20/22 History Oxford-3 Fatty Acids/Fish Oil [Fish 1 each PO DAILY 11/25/20 01/20/22 History Oil 1,000 mg Softgel] Pravastatin Sodium [Pravachol] 20 mg PO DAILY 11/25/20 01/20/22 History Vitamin B Complex 1 each PO DAILY 12/13/20 01/20/22 History Allergies Allergy/AdvReac Type Severity Reaction Status Date / Time neosporin eye drops AdvReac Swelling Uncoded 01/20/22 11:36 Objective - Vital Signs Vital signs: Vital Signs Temp 98 F 01/24/24 11:34 Pulse 87 01/24/24 11:34 Resp 17 01/24/24 11:34 BP 152/82 01/24/24 11:34 Pulse Ox 95 01/24/24 11:34 FiO2 Intake & Output 01/23/24 01/24/24 01/24/24 18:59 06:59 18:59 Weight 67.585 kg - Constitutional General appearance: Present: cooperative - EENT Eyes: Present: EOMI ENT: Present: hearing grossly normal - Neck Neck: Present: normal ROM - Respiratory Respiratory: bilateral: CTA - Cardiovascular Heart sounds: normal: S1, S2 - Integumentary Integumentary: Present: normal turgor - Musculoskeletal Musculoskeletal: Present: gait normal - Psychiatric Psychiatric: Present: A&O x's 3, appropriate affect, intact judgment & insight - Additional findings Additional findings: Breast Exam: BRA: 38C inspection: bilateral post op changes Right breast: Multi-positional exam fibrocystic changes no dominant masses or nodules of concern, post surgical changes, totally healed at this time Right axilla: No adenopathy of concern Left breast: postsurgical and radiation changes no dominant masses or nodules of concern in the left breast Left axilla: No adenopathy of concern Assessment and Plan Assessment: Impression: Degenerative disc disease and spine High cholesterol Borderline diabetic left breast cancer stage II, no evidence of recurrence bilateral mammogram 01-21-24 BIRAD 3; repeat right breast mammogram in 6 months Plan: stopped anestrazole/ Dr. Gardiner will start exmestane in 1 month 02-13-24 continue veoazh right breast mammoggram in 6 months with appointment at that time follow up medical oncology follow up radiation oncology CC: Dr. Marcum
== END ==
LOC: WWCWWP 10:21
PROVIDERS: ATTEND Surgery
DX: R92.8 Other abnormal and inconclusive findings on diagnostic imaging of breast (principal); E78.00 Pure hypercholesterolemia, unspecified; R73.03 Prediabetes; M51.9 Unspecified thoracic, thoracolumbar and lumbosacral intervertebral disc disorder; R59.0 Localized enlarged lymph nodes; Z86.16 Personal history of COVID-19; Z92.3 Personal history of irradiation; Z87.891 Personal history of nicotine dependence; Z85.3 Personal history of malignant neoplasm of breast; Z88.0 Allergy status to penicillin; Z88.5 Allergy status to narcotic agent; Z88.8 Allergy status to other drugs, medicaments and biological substances

== ENCOUNTER → 2024-03-20 | Outpatient (CLI) | payer MEDICARE, OTHER ==
--- NOTE | 2024-03-31 21:38 | BD ---
EXAMINATION TYPE: Axial Bone Density DATE OF EXAM: 03/20/2024 CLINICAL HISTORY: 63 years old Female. ICD-10 CODE: C50.912 MALIGNANT NEOPLASM OF UNSPECIFIED SITE O F Height: 64.2 Weight: 152.4 FRAX RISK QUESTIONS: Alcohol (3 or more units per day): no Family History (Parent hip fracture): no Glucocorticoids (More than 3mos): no (Ex: prednisone, prednisolone, methylprednisolone, dexamethasone, and hydrocortisone). History of Fracture in Adulthood: no Secondary Osteoporosis: 1. Type 1 Diabetes: no 2. Hyperthyroidism: no 3. Menopause before 45: no 4. Malnutrition: no 5. Chronic liver disease: no Rheumatoid Arthritis: no Current Tobacco Use: no RISK FACTORS HISTORY OF: Hip Fracture (Right/Left): no Spine Fracture: no History of Wrist Fracture: no Surgery to Spine/Hip(right/left)/Wrist (right/left): LS-Spine When: 40 years ago MEDICATIONS: Thyroid Medications: no Osteoporosis Medications: no Breast Ca. EXAM MEASUREMENTS: Bone mineral density about the R hip (g/cm2): 0.978 Bone mineral density about the L hip (g/cm2): 0.948 T Score values are as follows: -----R Neck: -0.3 -----L Neck: -0.7 -----R Total: -0.2 -----L Total: -0.5 Z Score values are as follows: -----R Neck: 1.2 -----L Neck: 0.7 -----R Total: 0.9 -----L Total: 0.7 Bone mineral density has: increased 6.4 % since study of: 02/13/2022 Bone mineral density about the L Wrist (g/cm2): 0.543 T Score values are as follows: -----Dist. R+U: -0.7 -----Prox. R+U: -1.5 -----Radius total: -1.5 Z Score values are as follows: -----Dist. R+U: 0.8 -----Prox. R+U: 0.0 -----Radius total: 0.0 Bone mineral density has: increased 1.6 % since study of: 02/13/2022 FRAX%s: The graph provided illustrates a 7.8% chance for a major osteoporotic fx and a 0.5% chance fo r the hips probability for fx in 10 years time. IMPRESSION: Osteopenia (T Score between -2.5 and -1). There is slightly increased risk of fracture and the patient may be considered for treatment. Re-Screen 2-5 years. NOTE: T-SCORE=SD OF THE YOUNG ADULT MEAN. [facility], Workstation: MARY ANN, 03/31/2024 9:35 PM
== END | disposition home or self-care (01) ==
LOC: RADBDWWP 08:53
PROVIDERS: ATTEND Internal Medicine
DX: C50.912 Malignant neoplasm of unspecified site of left female breast
CPT/HCPCS: 77080

== ENCOUNTER → 2024-07-24 | Outpatient (CLI) | payer MEDICARE, OTHER ==
--- NOTE | 2024-07-30 07:24 | MM ---
Reason for Exam: Follow-up at short interval from prior study. Last screening mammogram was performed 6 month(s) ago. Patient History: Menarche at age 12. First Full-Term at age 16. Hysterectomy at age 22. Postmenopausal. Breast cancer, left, age 61. Breast cancer, left, age 61. Estrogen, starting at age 44 for 1 year. 07/18/2022, Lumpectomy on the Left side. 07/18/2022, Benign MG pre op needle loc LT on the left side. 07/18/2022, MG pre op loc each addl LT on the Left side. 01/16/2022, Malignant US biopsy breast VAD LT on the left side. 01/16/2022, Malignant US biopsy breast add'l VAD LT on the left side. Benign Excisional Biopsy on the right side. Benign Excisional Biopsy on the right side. Prior Study Comparison: 01/17/2023 Bilateral MG 3D diag mammo w/cad [facility], [facility]. 04/24/2023 Left MG 3D diag mammo w/cad [facility], [facility]. 01/21/2024 Bilateral MG 3D diag mammo w/cad [facility], [facility]. Tissue Density: Right: The breasts are heterogeneously dense, which may obscure small masses. Findings: Analyzed By CAD. Postreduction mammoplasty changes are demonstrated. The appearance of the areas of asymmetric density remain unchanged for 6 months. Ongoing short interval follow-up to demonstrate more long-term stability. Overall Assessment: Probably benign, BI-RAD 3 Management: Diagnostic Mammogram of both breasts in 6 months. Total one-year follow-up right breast and ongoing posttreatment follow-up left breast. Results were given to the patient verbally at the time of exam. Patient should continue monthly self-breast exams. A clinical breast exam by your physician is recommended on an annual basis. This exam should not preclude additional follow-up of suspicious palpable abnormalities. [facility], , 07/24/2024 9:42 AM. Electronically signed and approved by: Nanci Jovel M.D. Radiologist
== END | disposition home or self-care (01) ==
LOC: RADMAMWWP 09:18
PROVIDERS: ATTEND Surgery
DX: R92.2 Inconclusive mammogram (principal); R92.333 Mammographic heterogeneous density, bilateral breasts; Z78.0 Asymptomatic menopausal state; Z85.3 Personal history of malignant neoplasm of breast
CPT/HCPCS: 77061; 77065

== ENCOUNTER → 2024-07-31 | Outpatient (CLI) | payer MEDICARE, OTHER ==
[2024-07-31 12:04] VITALS: BP 150/74; PULSE 87; RESP 16; TEMP 97.9
--- NOTE | 2024-07-31 12:48 | P.PN ---
Subjective Progress Note Date: 07/31/24 07-31-24 Principal diagnosis: [id number]. Stage II left breast; [id number] left breast stage IIA invasive ductal carcinoma, diagnosed 2021 Eunice is 61-year-old white female seen in consultation for Dr. Marcum regarding an invasive ductal carcinoma of the left breast. She underwent a bilateral screening mammogram on as well as an ultrasound of the left breast at that time. Nothing of concern was noted in the right breast. In the left breast a 2.7 cm lesion was noted near the 12 o'clock position. Additionally enlarged axillary lymph node was identified and biopsied this was recommended as well. She underwent core biopsy of both of these areas on . Pathology revealed an invasive ductal carcinoma of the left breast, lymph node results were benign. The lesion is [id number]-Her2-G3. StageIIA. The patient had been able to feel the spot for about two weeks. She gets mammograms regularly, however with COVID she was 2 years out. She was not complaining of any pain. He has had a right breast core lumpectomy approximately 20 years ago and told she had a precancerous lesion. She did not have any radiation therapy or chemotherapy. She is not complaining of any recent trauma or infection in the breast. She has never had a left breast biopsy. She underwent neoadjuvant chemotherapy wtih AC-T (oncotype 69) followed by lumpectomy and SNB on 07-18-22. This was T0 N0 disease on pathology. She completed radiation therapy in August 2022. She is presently on anastrozole and has had no side effects. She is also on Fosamax. 07-18-22 left breast lumpectomy and SNB; no residual cancer, and nodes (-) completed radiation of the left breast on 09-15-22 bilateral mammogram 01-17-23 BIRAD 3 diagnostic mammogram of left breast in 3 months, she is not complaining of any new lumps masses or nodules in either breast repeat left breast mammogram on 04-24-23 BIRAD 2; bilateral mammogram in 9 months Patient is not complaining of any new lumps masses or nodules of concern in either breast. Patient is no longer taking gabapentin but she is taking vatoza for hot flashes it is non-hormonal 01-24-24 bilateral mammogram personally interpreted BIRAD 3, repeat right mammogram in 6 months note medical oncology reviewed: 01-11-24 She underwent right reduction mammoplasty on 06-12-23, after which she had some breakdown at the trifurcation of the inferior portion of the incision this has completely healed at this time She is not complaining of any new lumps masses or nodules of concern in either breast She was having joint pains on anastrozole and that has been stopped as per Dr. Gardiner she will have a 1 month break and then will have an attempted exemestane 07-31-24 64 year old female dx with [id number]-Her2-G3. Stage II left breast; 2021 She underwent neoadjuvant chemotherapy with AC-T (oncotype 69) followed by lumpectomy and SNB on 07-18-22. This was T0 N0 disease on pathology. oncotype 69 She completed radiation therapy in August 2022. She did not tolerate annestrazole, did not tolerated arimidex, but will try tamoxifen at this time she is tolerating this She is also on Fosamax. right reduction mammoplasty on 06-12-23 bilateral mammogram 01-21-24 personally interpreted BIRAD 3, repeat right mammog jonas in 6 months; note medical oncology reviewed: 07-11-24 right breast mammogram on 07-24-24 BIRAD 3 repeat bilateral mammogram in 6 months note medical oncology 07-11-24 reviewed; genetic test BR1P1 reclassified and she is going to have a bilat salpingo-oophrectomy (scheduled to see Dr. Gonzales ob- pathology laboratory aide, September 09, 2024) continue vehoza EGD/colonoscopy to be done; this will be done next week no polyps but told diverticulosis note radiation oncology 05-08-24 reviewed (cavity boost to 5256 completed on 09-15-22) Eunice notes an area of increased nodularity at the lumpectomy site in the left breast. It is not tender, and it has not increased in size. Caffeine: 1 pot/day nicotine: vapes since 2012, used to smoke < 1PPD started at 11; stopped the pain approximately 1 month ago hormones: BCP: 3 years partial hysterectomy at 21; estrogen 10 years; Family History: mother: brain cancer father: lung maternal grandfather: lung aunt maternal: kidney cancer maternal uncle: throat cancer Hormonal History: menarche: 12 , breast fed: no, age at first : 17 menopause: hysterectomy at 21 for bleeding; left ovaries Surgical History: 3 spinal surgeries Neural modulator Hysterectomy left breast lumpectomy and SNB right reduction mammoplasty Medical History: Degenerative disc disease and spine High cholesterol Borderline diabetic Social History: Nicotine/dates since 2012, used to smoke less than 1 pack per day started at 11 Alcohol: none drugs: none - Constitutional Constitutional: Reports sweats - EENT Comment: glaucoma Ears: bilateral: tinnitus, deny: decreased hearing Ears, nose, mouth and throat: Denies headache, Denies sore throat - Breasts Breasts: bilateral: as per HPI - Cardiovascular Cardiovascular: Reports shortness of breath, Denies chest pain - Respiratory Respiratory: Denies cough - Gastrointestinal Gastrointestinal: Denies abdominal pain, Denies diarrhea, Denies nausea, Denies vomiting - Genitourinary (Female) Genitourinary: Denies dysuria, Denies hematuria - Menstruation Menstruation: Reports post hysterectomy - Musculoskeletal Musculoskeletal: Reports as per HPI - Integumentary Integumentary: Denies pruritus, Denies rash - Neurological Neurological: Denies numbness, Denies weakness - Psychiatric Psychiatric: Denies anxiety, Denies depression - Endocrine Endocrine: Denies fatigue, Denies weight change - Hematologic/Lymphatic Comment: baby aspirin daily - Allergic/Immunologic Allergic/Immunologic: Reports as per HPI Past Medical History Past Medical History: Hyperlipidemia Additional Past Medical History / Comment(s): received J&J covid vaccine. Gabapentin for "hot flashes" History of Any Multi-Drug Resistant Organisms: None Reported Past Surgical History: Back Surgery, Hysterectomy, Tonsillectomy Additional Past Surgical History / Comment(s): back surgery x3,has spinal cord stimulator-battery rt hip lead to mid back,partial hyst Past Anesthesia/Blood Transfusion Reactions: No Reported Reaction Past Psychological History: No Psychological Hx Reported Smoking Status: Former smoker Past Alcohol Use History: None Reported Additional Past Alcohol Use History / Comment(s): quit smoking years ago, smoked approx 30 yrs <1ppd Past Drug Use History: None Reported - Past Family History Mother Family Medical History: Cancer Additional Family Medical History / Comment(s): brain CA Father Family Medical History: Cancer Additional Family Medical History / Comment(s): lung CA Medications and Allergies Home Medications Medication Instructions Recorded Confirmed Type Aspirin 81 mg PO DAILY 11/25/20 01/20/22 History Calcium Carbonate [Calcium] 600 mg PO DAILY 11/25/20 01/20/22 History Gabapentin 600 mg PO BID 11/25/20 01/20/22 History [place]-3 Fatty Acids/Fish Oil [Fish 1 each PO DAILY 11/25/20 01/20/22 History Oil 1,000 mg Softgel] Pravastatin Sodium [Pravachol] 20 mg PO DAILY 11/25/20 01/20/22 History Vitamin B Complex 1 each PO DAILY 12/13/20 01/20/22 History Allergies Allergy/AdvReac Type Severity Reaction Status Date / Time neosporin eye drops AdvReac Swelling Uncoded 01/20/22 11:36 Objective - Vital Signs Vital signs: Vital Signs Temp 97.9 F 07/31/24 12:01 Pulse 87 07/31/24 12:01 Resp 16 07/31/24 12:01 BP 150/74 07/31/24 12:01 Pulse Ox 97 07/31/24 12:01 FiO2 Intake & Output 07/30/24 07/31/24 07/31/24 18:59 06:59 18:59 Weight 69.4 kg - Constitutional General appearance: Present: cooperative - EENT Eyes: Present: EOMI ENT: Present: hearing grossly normal - Neck Neck: Present: normal ROM - Respiratory Respiratory: bilateral: CTA - Cardiovascular Rhythm: regular Heart sounds: normal: S1, S2 - Integumentary Integumentary: Present: normal turgor - Musculoskeletal Musculoskeletal: Present: gait normal - Psychiatric Psychiatric: Present: A&O x's 3, appropriate affect, intact judgment & insight - Additional findings Additional findings: Breast Exam: BRA: 38C inspection: bilateral post op changes Right breast: Multi-positional exam fibrocystic changes no dominant masses or nodules of concern, post surgical changes, totally healed at this time Right axilla: No adenopathy of concern Left breast: postsurgical and radiation changes nodularity at lumpectomy site Left axilla: No adenopathy of concern Assessment and Plan Assessment: Impression: Degenerative disc disease and spine High cholesterol Borderline diabetic left breast cancer stage II, nodularity at lumpectomy site bilateral mammogram 01-21-24 BIRAD 3; repeat right breast mammogram in 6 months; repeat right breast mammogram 07-24-24 BI-RADS 3 bilateral mammogram in 6 months recommended Plan: on tamoxifen continue veoazh bilateral mammoggram in 6 months with appointment at that time Left breast ultrasound to follow-up after this is done, may consider surgical resection of lumpectomy site follow up medical oncology follow up radiation oncology CC: Dr. Marcum
== END ==
LOC: WWCWWP 11:21
PROVIDERS: ATTEND Surgery
DX: C50.912 Malignant neoplasm of unspecified site of left female breast (principal); M51.16 Intervertebral disc disorders with radiculopathy, lumbar region; E78.00 Pure hypercholesterolemia, unspecified; Z88.0 Allergy status to penicillin; Z88.5 Allergy status to narcotic agent; Z88.8 Allergy status to other drugs, medicaments and biological substances; R73.03 Prediabetes

== ENCOUNTER → 2024-08-01 | Outpatient (CLI) | payer MEDICARE, OTHER ==
--- NOTE | 2024-08-01 13:01 | USB ---
Reason for Exam: Clinical finding. Patient History: Menarche at age 12. First Full-Term at age 16. Hysterectomy at age 22. Postmenopausal. Breast cancer, left, age 61. Breast cancer, left, age 61. Estrogen, starting at age 44 for 1 year. 07/18/2022, Lumpectomy on the Left side. 07/18/2022, Benign MG pre op needle loc LT on the left side. 07/18/2022, MG pre op loc each addl LT on the Left side. 01/16/2022, Malignant US biopsy breast VAD LT on the left side. 01/16/2022, Malignant US biopsy breast add'l VAD LT on the left side. Benign Excisional Biopsy on the right side. Benign Excisional Biopsy on the right side. Technique: Method: Targeted. Prior Study Comparison: 04/24/2023 Left MG 3D diag mammo w/cad LT, [facility]. 01/21/2024 Bilateral MG 3D diag mammo w/cad DAMIR, [facility]. 07/24/2024 Right MG 3D diag mammo w/cad RT, [facility]. Findings: The area of palpable concern of the left breast, the axilla of the left breast and the retroareolar of the left breast were scanned. Technique utilized:US breast limited LT Image; Ultrasound imaging of: Area of concern, retroareolar region and axilla. Lumpectomy site at 12:00 6 cm nipple demonstrates some probable postsurgical change. This to BE compared to prior mammography on 01/21/2024 to confirm stable findings. Overall Assessment: Incomplete: need additional imaging evaluation, BI-RAD 0 Management: Diagnostic Mammogram of the left breast. A clinical breast exam by your physician is recommended on an annual basis and results should be correlated with mammographic findings. This exam should not preclude additional follow-up of suspicious palpable abnormalities. Results were given to the patient verbally at the time of exam. [facility], , 08/01/2024 12:55 PM. Electronically signed and approved by: Shane Pinto DO
--- NOTE | 2024-08-01 14:27 | MM ---
Reason for Exam: Clinical finding. Last screening mammogram was performed 6 month(s) ago. Patient History: Menarche at age 12. First Full-Term at age 16. Hysterectomy at age 22. Postmenopausal. Breast cancer, left, age 61. Breast cancer, left, age 61. Estrogen, starting at age 44 for 1 year. 07/18/2022, Lumpectomy on the Left side. 07/18/2022, Benign MG pre op needle loc LT on the left side. 07/18/2022, MG pre op loc each addl LT on the Left side. 01/16/2022, Malignant US biopsy breast VAD LT on the left side. 01/16/2022, Malignant US biopsy breast add'l VAD LT on the left side. Benign Excisional Biopsy on the right side. Benign Excisional Biopsy on the right side. Prior Study Comparison: 04/24/2023 Left MG 3D diag mammo w/cad LT, [facility]. 01/21/2024 Bilateral MG 3D diag mammo w/cad DAMIR, [facility]. 07/24/2024 Right MG 3D diag mammo w/cad RT, [facility]. Tissue Density: Left: The breasts are heterogeneously dense, which may obscure small masses. Findings: Analyzed By CAD. Stable postprocedural changes with left breast surgical clips. No new suspicious masses, calcifications or distortions. Overall Assessment: Benign, BI-RAD 2 Management: Screening Mammogram of both breasts in 1 year. Results were given to the patient verbally at the time of exam. Patient should continue monthly self-breast exams. A clinical breast exam by your physician is recommended on an annual basis. This exam should not preclude additional follow-up of suspicious palpable abnormalities. Note on Virgie scores and lifetime risk: 1. A Virgie score greater than 3% is considered moderate risk. If this is the case, consider specialist referral to assess eligibility for a risk reducing agent. 2. If overall lifetime risk for the development of breast cancer is 20% or higher, the patient may qualify for future screening with alternating mammogram and breast MRI. [facility], , 08/01/2024 1:28 PM. Electronically signed and approved by: Shane Pinto DO
== END | disposition home or self-care (01) ==
LOC: RADUSWWP 12:18
PROVIDERS: ATTEND Surgery
DX: R92.332 Mammographic heterogeneous density, left breast (principal); Z85.3 Personal history of malignant neoplasm of breast; Z98.890 Other specified postprocedural states; Z78.0 Asymptomatic menopausal state
CPT/HCPCS: 77061; 77065

== ENCOUNTER → 2024-08-29 | Outpatient (CLI) | payer MEDICARE, OTHER ==
[2024-08-29 11:42] VITALS: BP 132/76; PULSE 90; RESP 17; TEMP 97.8
--- NOTE | 2024-08-29 11:48 | P.PN ---
Subjective Progress Note Date: 08/29/24 Went a left breast mammogram and ultrasound in 08-01-2024 particular attention was paid to the area of palpable change in the left breast. The area appears to be consistent with post surgical changes and postradiation changes. However secondary to the fact that this is a new palpable change but I have recommended an ultrasound core biopsy of that site. This will most likely proved to be scar tissue/fat necrosis but we would like to prove that. The patient will follow-up after the biopsy is done. I have called the patient and left a message at her home. Original Note: Subjective Progress Note Date: 07/31/24 07-31-24 Principal diagnosis: [id number]-Her2-G3. Stage II left breast; 202104-25-23 left breast stage IIA invasive ductal carcinoma, diagnosed 2021 Eunice is 61-year-old white female seen in consultation for Dr. Marcum regarding an invasive ductal carcinoma of the left breast. She underwent a bilateral screening mammogram on as well as an ultrasound of the left breast at that time. Nothing of concern was noted in the right breast. In the left breast a 2.7 cm lesion was noted near the 12 o'clock position. Additionally enlarged axillary lymph node was identified and biopsied this was recommended as well. She underwent core biopsy of both of these areas on . Pathology revealed an invasive ductal carcinoma of the left breast, lymph node results were benign. The lesion is [id number]-Her2-G3. StageIIA. The patient had been able to feel the spot for about two weeks. She gets mammograms regularly, however with COVID she was 2 years out. She was not complaining of any pain. He has had a right breast core lumpectomy approximately 20 years ago and told she had a precancerous lesion. She did not have any radiation therapy or chemotherapy. She is not complaining of any recent trauma or infection in the breast. She has never had a left breast biopsy. She underwent neoadjuvant chemotherapy wtih AC-T (oncotype 69) followed by lumpectomy and SNB on 07-18-22. This was T0 N0 disease on pathology. She completed radiation therapy in August 2022. She is presently on anastrozole and has had no side effects. She is also on Fosamax. 07-18-22 left breast lumpectomy and SNB; no residual cancer, and nodes (-) completed radiation of the left breast on 09-15-22 bilateral mammogram 01-17-23 BIRAD 3 diagnostic mammogram of left breast in 3 months, she is not complaining of any new lumps masses or nodules in either breast repeat left breast mammogram on 04-24-23 BIRAD 2; bilateral mammogram in 9 months Patient is not complaining of any new lumps masses or nodules of concern in either breast. Patient is no longer taking gabapentin but she is taking vatoza for hot flashes it is non-hormonal 01-24-24 bilateral mammogram personally interpreted BIRAD 3, repeat right mammogram in 6 months note medical oncology reviewed: 01-11-24 She underwent right reduction mammoplasty on 06-12-23, after which she had some breakdown at the trifurcation of the inferior portion of the incision this has completely healed at this time She is not complaining of any new lumps masses or nodules of concern in either breast She was having joint pains on anastrozole and that has been stopped as per Dr. Gardnier she will have a 1 month break and then will have an attempted exemestane 07-31-24 64 year old female dx with [id number]+Pr-Her2-G3. Stage II left breast; 2021 She underwent neoadjuvant chemotherapy with AC-T (oncotype 69) followed by lumpectomy and SNB on 07-18-22. This was T0 N0 disease on pathology. oncotype 69 She completed radiation therapy in August 2022. She did not tolerate annestrazole, did not tolerated arimidex, but will try tamoxifen at this time she is tolerating this She is also on Fosamax. 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 It is not tender, and it has not increased in size. 08-29-24 left breast core biopsy on 08-12-24 benign concordant, she tolerated this without difficulty repeat bilateral mammogram in December 2025 with appointment She underwent a an EGD on this revealed reactive gastropathy with congestion otherwise no abnormalities noted, She had a colonoscopy on the same date only noted diverticulosis Caffeine: 1 pot/day nicotine: vapes since 2012, used to smoke < 1PPD started at 11; stopped the pain approximately 1 month ago hormones: BCP: 3 years partial hysterectomy at 21; estrogen 10 years; Family History: mother: brain cancer father: lung maternal grandfather: lung aunt maternal: kidney cancer maternal uncle: throat cancer Hormonal History: menarche: 12 , breast fed: no, age at first : 17 menopause: hysterectomy at 21 for bleeding; left ovaries Surgical History: 3 spinal surgeries Neural modulator Hysterectomy left breast lumpectomy and SNB right reduction mammoplasty Medical History: Degenerative disc disease and spine High cholesterol Borderline diabetic Social History: Nicotine/dates since 2012, used to smoke less than 1 pack per day started at 11 Alcohol: none drugs: none - Constitutional Constitutional: Reports sweats - EENT Comment: glaucoma Ears: bilateral: tinnitus, deny: decreased hearing Ears, nose, mouth and throat: Denies headache, Denies sore throat - Breasts Breasts: bilateral: as per HPI - Cardiovascular Cardiovascular: Reports shortness of breath, Denies chest pain - Respiratory Respiratory: Denies cough - Gastrointestinal Gastrointestinal: Denies abdominal pain, Denies diarrhea, Denies nausea, Denies vomiting - Genitourinary (Female) Genitourinary: Denies dysuria, Denies hematuria - Menstruation Menstruation: Reports post hysterectomy - Musculoskeletal Musculoskeletal: Reports as per HPI - Integumentary Integumentary: Denies pruritus, Denies rash - Neurological Neurological: Denies numbness, Denies weakness - Psychiatric Psychiatric: Denies anxiety, Denies depression - Endocrine Endocrine: Denies fatigue, Denies weight change - Hematologic/Lymphatic Comment: baby aspirin daily - Allergic/Immunologic Allergic/Immunologic: Reports as per HPI Past Medical History Past Medical History: Hyperlipidemia Additional Past Medical History / Comment(s): received J&J covid vaccine. Gabapentin for "hot flashes" History of Any Multi-Drug Resistant Organisms: None Reported Past Surgical History: Back Surgery, Hysterectomy, Tonsillectomy Additional Past Surgical History / Comment(s): back surgery x3,has spinal cord stimulator-battery rt hip lead to mid back,partial hyst Past Anesthesia/Blood Transfusion Reactions: No Reported Reaction Past Psychological History: No Psychological Hx Reported Smoking Status: Former smoker Past Alcohol Use History: None Reported Additional Past Alcohol Use History / Comment(s): quit smoking years ago, smoked approx 30 yrs <1ppd Past Drug Use History: None Reported - Past Family History Mother Family Medical History: Cancer Additional Family Medical History / Comment(s): brain CA Father Family Medical History: Cancer Additional Family Medical History / Comment(s): lung CA Medications and Allergies Home Medications Medication Instructions Recorded Confirmed Type Aspirin 81 mg PO DAILY 11/25/20 01/20/22 History Calcium Carbonate [Calcium] 600 mg PO DAILY 11/25/20 01/20/22 History Gabapentin 600 mg PO BID 11/25/20 01/20/22 History [place]-3 Fatty Acids/Fish Oil [Fish 1 each PO DAILY 11/25/20 01/20/22 History Oil 1,000 mg Softgel] Pravastatin Sodium [Pravachol] 20 mg PO DAILY 11/25/20 01/20/22 History Vitamin B Complex 1 each PO DAILY 12/13/20 01/20/22 History Allergies Allergy/AdvReac Type Severity Reaction Status Date / Time neosporin eye drops AdvReac Swelling Uncoded 01/20/22 11:36 Objective - Vital Signs Vital signs: Intake & Output 08/28/24 08/29/24 08/29/24 18:59 06:59 18:59 Weight 70.307 kg - Constitutional General appearance: Present: cooperative - EENT Eyes: Present: EOMI ENT: Present: hearing grossly normal - Neck Neck: Present: normal ROM - Respiratory Respiratory: bilateral: CTA - Cardiovascular Heart sounds: normal: S1, S2 - Integumentary Integumentary: Present: normal turgor - Musculoskeletal Musculoskeletal: Present: gait normal - Psychiatric Psychiatric: Present: A&O x's 3, appropriate affect, intact judgment & insight - Additional findings Additional findings: Breast Exam: from 07-31-24 BRA: 38C inspection: bilateral post op changes Right breast: Multi-positional exam fibrocystic changes no dominant masses or nodules of concern, post surgical changes, totally healed at this time Right axilla: No adenopathy of concern Left breast: postsurgical and radiation changes nodularity at lumpectomy site Left axilla: No adenopathy of concern Assessment and Plan Assessment: Impression: Degenerative disc disease and spine High cholesterol Borderline diabetic left breast cancer stage II, nodularity at lumpectomy site bilateral mammogram 01-21-24 BIRAD 3; repeat right breast mammogram in 6 months; repeat right breast mammogram 07-24-24 BI-RADS 3 bilateral mammogram in 6 months recommended core biopsy of lumpectomhy site 08-12-24 benign Plan: on tamoxifen continue veoazh bilateral mammoggram in 6 months with appointment at that time core biopsy benign follow up in 6 months follow up medical oncology follow up radiation oncology CC: Dr. Marcum
== END ==
LOC: WWCWWP 10:23
PROVIDERS: ATTEND Surgery
DX: C50.912 Malignant neoplasm of unspecified site of left female breast (principal); E11.9 Type 2 diabetes mellitus without complications; E78.00 Pure hypercholesterolemia, unspecified; Z88.0 Allergy status to penicillin; Z88.5 Allergy status to narcotic agent; Z88.8 Allergy status to other drugs, medicaments and biological substances

== ENCOUNTER → 2025-01-21 | Outpatient (CLI) | payer MEDICARE, OTHER ==
--- NOTE | 2025-01-21 11:33 | MM ---
Reason for Exam: Hx of breast cancer, conservation therapy. Last screening mammogram was performed 12 month(s) ago. Patient History: Menarche at age 12. First Full-Term at age 16. Hysterectomy at age 22. Postmenopausal. Breast cancer, left, age 61. Breast cancer, left, age 61. Estrogen, starting at age 44 for 1 year. 08/13/2024, Benign US biopsy breast VAD LT on the left side. 07/18/2022, Lumpectomy on the Left side. 07/18/2022, Benign MG pre op needle loc LT on the left side. 07/18/2022, MG pre op loc each addl LT on the Left side. 01/16/2022, Malignant US biopsy breast VAD LT on the left side. 01/16/2022, Malignant US biopsy breast add'l VAD LT on the left side. Benign Excisional Biopsy on the right side. Benign Excisional Biopsy on the right side. Tissue Density: There are scattered areas of fibroglandular density. Findings: Analyzed By CAD. No new suspicious masses, calcifications or distortions. Overall Assessment: Negative, BI-RAD 1 Management: Screening Mammogram of both breasts in 1 year. Results were given to the patient verbally at the time of exam. Patient should continue monthly self-breast exams. A clinical breast exam by your physician is recommended on an annual basis. This exam should not preclude additional follow-up of suspicious palpable abnormalities. Note on Virgie scores and lifetime risk: 1. A Virgie score greater than 3% is considered moderate risk. If this is the case, consider specialist referral to assess eligibility for a risk reducing agent. 2. If overall lifetime risk for the development of breast cancer is 20% or higher, the patient may qualify for future screening with alternating mammogram and breast MRI. [facility], , 01/21/2025 8:43 AM. Electronically signed and approved by: Shane Pinto DO
== END | disposition home or self-care (01) ==
LOC: RADMAMWWP 08:21
PROVIDERS: ATTEND Surgery
DX: R92.333 Mammographic heterogeneous density, bilateral breasts (principal); Z85.3 Personal history of malignant neoplasm of breast; Z78.0 Asymptomatic menopausal state
CPT/HCPCS: 77062; 77066

== ENCOUNTER → 2025-01-29 | Outpatient (CLI) | payer MEDICARE, OTHER ==
[2025-01-29 13:00] VITALS: BP 112/67; PULSE 85; RESP 16; TEMP 98.8
--- NOTE | 2025-01-29 13:16 | P.PN ---
Subjective Progress Note Date: 01/29/25 Principal diagnosis: [id number]+Pr-Her2-G3. Stage II left breast; 202108/29/24 Went a left breast mammogram and ultrasound in 08-01-2024 particular attention was paid to the area of palpable change in the left breast. The area appears to be consistent with post surgical changes and postradiation changes. However secondary to the fact that this is a new palpable change but I have recommended an ultrasound core biopsy of that site. This will most likely proved to be scar tissue/fat necrosis but we would like to prove that. The patient will follow-up after the biopsy is done. I have called the patient and left a message at her home. Original Note: Subjective Progress Note Date: 07/31/24 07-31-24 Principal diagnosis: [id number]+Pr-Her2-G3. Stage II left breast; 202104-25-23 left breast stage IIA invasive ductal carcinoma, diagnosed 2021 Eunice is 61-year-old white female seen in consultation for Dr. Marcum regarding an invasive ductal carcinoma of the left breast. She underwent a bilateral screening mammogram on as well as an ultrasound of the left breast at that time. Nothing of concern was noted in the right breast. In the left breast a 2.7 cm lesion was noted near the 12 o'clock position. Additionally enlarged axillary lymph node was identified and biopsied this was recommended as well. She underwent core biopsy of both of these areas on . Pathology revealed an invasive ductal carcinoma of the left breast, lymph node results were benign. The lesion is [id number]+Pr-Her2-G3. StageIIA. The patient had been able to feel the spot for about two weeks. She gets mammograms regularly, however with COVID she was 2 years out. She was not complaining of any pain. He has had a right breast core lumpectomy approximately 20 years ago and told she had a precancerous lesion. She did not have any radiation therapy or chemotherapy. She is not complaining of any recent trauma or infection in the breast. She has never had a left breast bio psy. She underwent neoadjuvant chemotherapy wtih AC-T (oncotype 69) followed by lumpectomy and SNB on 07-18-22. This was T0 N0 disease on pathology. She completed radiation therapy in August 2022. She is presently on anastrozole and has had no side effects. She is also on Fosamax. 07-18-22 left breast lumpectomy and SNB; no residual cancer, and nodes (-) completed radiation of the left breast on 09-15-22 bilateral mammogram 01-17-23 BIRAD 3 diagnostic mammogram of left breast in 3 months, she is not complaining of any new lumps masses or nodules in either breast repeat left breast mammogram on 04-24-23 BIRAD 2; bilateral mammogram in 9 months Patient is not complaining of any new lumps masses or nodules of concern in either breast. Patient is no longer taking gabapentin but she is taking vatoza for hot flashes it is non-hormonal 01-24-24 bilateral mammogram personally interpreted BIRAD 3, repeat right mammogram in 6 months note medical oncology reviewed: 01-11-24 She underwent right reduction mammoplasty on 06-12-23, after which she had some breakdown at the trifurcation of the inferior portion of the incision this has completely healed at this time She is not complaining of any new lumps masses or nodules of concern in either breast She was having joint pains on anastrozole and that has been stopped as per Dr. Gardiner she will have a 1 month break and then will have an attempted exemestane 07-31-24 64 year old female dx with [id number]+Pr-Her2-G3. Stage II left breast; 2021 She underwent neoadjuvant chemotherapy with AC-T (oncotype 69) followed by lumpectomy and SNB on 07-18-22. This was T0 N0 disease on pathology. oncotype 69 She completed radiation therapy in August 2022. She did not tolerate annestrazole, did not tolerated arimidex, but will try tamoxifen at this time she is tolerating this She is also on Fosamax. 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 Gonzales ob- stores clerk, September 09, 2024) continue vehoza EGD/colonoscopy to be done; this will be done next week no polyps but told diverticulosis note radiation oncology 05-08-24 reviewed (cavity boost to [id number] completed on 09-15-22) Eunice notes an area of increased nodularity at the lumpectomy site in the left breast. It is not tender, and it has not increased in size. 08-29-24 left breast core biopsy on 08-12-24 benign concordant, she tolerated this without difficulty repeat bilateral mammogram in December 2025 with appointment She underwent a an EGD on this revealed reactive gastropathy with congestion otherwise no abnormalities noted, She had a colonoscopy on the same date only noted diverticulosis 01-29-25 64 year old female dx with [id number]+Pr-Her2-G3. Stage II left breast; 2021 She underwent neoadjuvant chemotherapy with AC-T (oncotype 69) followed by lumpectomy and SNB on 07-18-22. This was T0 N0 disease on pathology. oncotype 69 She completed radiation therapy in August 2022. She did not tolerate annestrazole, did not tolerated arimidex, but will try tamoxifen did not tolerate She is also on Fosamax. right reduction mammoplasty on 06-12-23 bilateral mammogram 01-21-25 personally interpreted BIRAD 1, bilateral mammogram in 1 year note medical oncology reviewed: 07-11-24 note medical oncology 10-07-24 Dr. Lamine Gardiner reviewed BR1P1 mutation underwent bilateral salpingo oophrectomy on 10-02-24 She is not complaining of any new lumps masses or nodules of concern in either breast. Caffeine: 1 pot/day nicotine: vapes since 2012, used to smoke < 1PPD started at 11; stopped the pain approximately 1 month ago hormones: BCP: 3 years partial hysterectomy at 21; estrogen 10 years; Family History: mother: brain cancer father: lung maternal grandfather: lung aunt maternal: kidney cancer maternal uncle: throat cancer Hormonal History: menarche: 12 , breast fed: no, age at first : 17 menopause: hysterectomy at 21 for bleeding; left ovaries Surgical History: 3 spinal surgeries Neural modulator Hysterectomy left breast lumpectomy and SNB right reduction mammoplasty Bilateral salpingo-oophorectomy Medical History: Degenerative disc disease and spine High cholesterol Borderline diabetic HTN Social History: Nicotine/dates since 2012, used to smoke less than 1 pack per day started at 11 Alcohol: none drugs: none - Constitutional Constitutional: Reports sweats - EENT Comment: glaucoma Ears: bilateral: tinnitus, deny: decreased hearing Ears, nose, mouth and throat: Denies headache, Denies sore throat - Breasts Breasts: bilateral: as per HPI - Cardiovascular Cardiovascular: Reports shortness of breath, Denies chest pain - Respiratory Respiratory: Denies cough - Gastrointestinal Gastrointestinal: Denies abdominal pain, Denies diarrhea, Denies nausea, Denies vomiting - Genitourinary (Female) Genitourinary: Denies dysuria, Denies hematuria - Menstruation Menstruation: Reports post hysterectomy - Musculoskeletal Musculoskeletal: Reports as per HPI - Integumentary Integumentary: Denies pruritus, Denies rash - Neurological Neurological: Denies numbness, Denies weakness - Psychiatric Psychiatric: Denies anxiety, Denies depression - Endocrine Endocrine: Denies fatigue, Denies weight change - Hematologic/Lymphatic Comment: baby aspirin daily - Allergic/Immunologic Allergic/Immunologic: Reports as per HPI Past Medical History Past Medical History: Hyperlipidemia Additional Past Medical History / Comment(s): received J&J covid vaccine. Gabapentin for "hot flashes" History of Any Multi-Drug Resistant Organisms: None Reported Past Surgical History: Back Surgery, Hysterectomy, Tonsillectomy Additional Past Surgical History / Comment(s): back surgery x3,has spinal cord stimulator-battery rt hip lead to mid back,partial hyst Past Anesthesia/Blood Transfusion Reactions: No Reported Reaction Past Psychological History: No Psychological Hx Reported Smoking Status: Former smoker Past Alcohol Use History: None Reported Additional Past Alcohol Use History / Comment(s): quit smoking years ago, smoked approx 30 yrs <1ppd Past Drug Use History: None Reported - Past Family History Mother Family Medical History: Cancer Additional Family Medical History / Comment(s): brain CA Father Family Medical History: Cancer Additional Family Medical History / Comment(s): lung CA Medications and Allergies Home Medications Medication Instructions Recorded Confirmed Type Aspirin 81 mg PO DAILY 11/25/20 01/20/22 History Calcium Carbonate [Calcium] 600 mg PO DAILY 11/25/20 01/20/22 History Gabapentin 600 mg PO BID 11/25/20 01/20/22 History D Lo-3 Fatty Acids/Fish Oil [Fish 1 each PO DAILY 11/25/20 01/20/22 History Oil 1,000 mg Softgel] Pravastatin Sodium [Pravachol] 20 mg PO DAILY 11/25/20 01/20/22 History Vitamin B Complex 1 each PO DAILY 12/13/20 01/20/22 History Allergies Allergy/AdvReac Type Severity Reaction Status Date / Time neosporin eye drops AdvReac Swelling Uncoded 01/20/22 11:36 Objective - Constitutional General appearance: Present: cooperative - EENT Eyes: Present: EOMI ENT: Present: hearing grossly normal - Neck Neck: Present: normal ROM - Respiratory Respiratory: bilateral: CTA - Cardiovascular Rhythm: regular Heart sounds: normal: S1, S2 - Integumentary Integumentary: Present: normal turgor - Musculoskeletal Musculoskeletal: Present: gait normal - Psychiatric Psychiatric: Present: A&O x's 3 - Additional findings Additional findings: Breast Exam BRA: 38C inspection: bilateral post op changes Right breast: Multi-positional exam fibrocystic changes no dominant masses or nodules of concern, post surgical changes, totally healed at this time Right axilla: No adenopathy of concern Left breast: postsurgical and radiation changes nodularity at lumpectomy site, unchanged from last examination Left axilla: No adenopathy of concern Assessment and Plan Assessment: Impression: Degenerative disc disease and spine High cholesterol Borderline diabetic left breast cancer stage II, nodularity at lumpectomy site bilateral mammogram 01-21-24 BIRAD 3; repeat right breast mammogram in 6 months; repeat right breast mammogram 07-24-24 BI-RADS 3 bilateral mammogram in 6 months recommended core biopsy of lumpectomhy site 08-12-24 benign bilateral mammogram 01-21-25 BIRAD 1 follow up in one year; personally reviewed Plan: stopped tamoxifen continue veoazh bilateral mammogram in one year with appointment here follow up in 6 months for surveillance follow up medical oncology follow up radiation oncology CC: Dr. Marcum
== END ==
LOC: WWCWWP 12:28
PROVIDERS: ATTEND Surgery
DX: C50.912 Malignant neoplasm of unspecified site of left female breast (principal); M50.30 Other cervical disc degeneration, unspecified cervical region; Z98.890 Other specified postprocedural states; Z88.0 Allergy status to penicillin; Z88.5 Allergy status to narcotic agent; Z88.1 Allergy status to other antibiotic agents